=== PATIENT | female | born 1965 | race African-American/Black ===

== ENCOUNTER 2016-03-06 13:00 | Emergency (ER) | payer OTHER ==
--- NOTE | 2016-03-06 15:13 | PHYS DOC ---
Past Medical History Past Medical History: Diabetes-Type II, High Cholesterol, Hypertension Additional Past Medical Histor: obesity, "slight enlarged heart" Past Surgical History: , Tonsillectomy Additional Past Surgical Histo: hernia Alcohol Use: Occasionally Drug Use: None Adult General Chief Complaint Chief Complaint: ABDOMINAL PAIN HPI HPI Patient is a 51 year old female presents emergency department stating that since Saturday she has had abdominal pain and discomfort with nausea feeling. She denies any emesis. Patient states that her abdomen discomfort is generalized. She states within the last 24 hours she has had some loose stools. She is unable to determine how many stool she's had as she said she was frequently throughout the night with loose stools. She denies any blood being in the stools. Patient denies fever, chills. Patient also states that she's been having some vaginal discharge white in color. She states that she felt that she had a yeast infection. Patient also states that she has not had a menstrual cycle for quite some time she thought she was pre-menstrual. States she is sexually active with one partner. She denies . Review of Systems Review of Systems Constitutional: Denies fever or chills [] Eyes: Denies change in visual acuity, redness, or eye pain [] HENT: Denies nasal congestion or sore throat [] Respiratory: Denies cough or shortness of breath [] Cardiovascular: No additional information not addressed in HPI [] GI: generalized abdominal pain, nausea, denies vomiting, C/o loose stools : Denies dysuria or hematuria. C/o white vaginal discharge Musculoskeletal: Denies back pain or joint pain [] Integument: Denies rash or skin lesions [] Neurologic: Denies headache, focal weakness or sensory changes [] Current Medications Current Medications Current Medications Medications (Trade) Dose Ordered Sig/Liana Start Time Stop Time Status Last Admin Dose Admin Info (Do NOT chart on this entry -- for MONITORING) 1 each PRN DAILY PRN 03/06/16 16:30 03/08/16 16:29 Iohexol (Omnipaque 300 Mg/ml) 75 ml 1X ONCE 03/06/16 16:30 03/06/16 16:31 DC 03/06/16 16:51 75 ML Ondansetron HCl (Zofran Odt) 4 mg 1X ONCE 03/06/16 16:30 03/06/16 16:31 DC 03/06/16 16:19 4 MG Sodium Chloride (Iv Sodium Chloride 0.9% 1000ml Bag) 1,000 ml @ 1,000 mls/hr 1X ONCE 03/06/16 15:15 03/06/16 16:14 DC 03/06/16 15:25 1,000 MLS/HR Allergies Allergies Allergies Coded Allergies Type Severity Reaction Last Updated Verified No Known Drug Allergies 03/26/13 No Physical Exam Physical Exam Constitutional: Well developed, well nourished, no acute distress, non-toxic appearance. [] HENT: Normocephalic, atraumatic, bilateral external ears normal, oropharynx moist, no oral exudates, nose normal. [] Eyes: PERRLA, EOMI, conjunctiva normal, no discharge. [] Neck: Normal range of motion, no tenderness, supple, no stridor. [] Cardiovascular:Heart rate regular rhythm, no murmur [] Lungs & Thorax: Bilateral breath sounds clear to auscultation [] Abdomen: Bowel sounds hypoactive, soft, right upper quadrant, left sided abdominal tenderness, no masses, no pulsatile masses. No rebound tenderness noted, no guarding noted. Skin: Warm, dry, no erythema, no rash. [] Back: No tenderness Extremities: No tenderness, no cyanosis, no clubbing, ROM intact, no edema. [] Neurologic: Alert and oriented X 3, normal motor function, normal sensory function, no focal deficits noted. [] Psychologic: Affect normal, judgement normal, mood normal. [] Pelvic exam, patient was noted to have white with slightly reddish discharge noted in the pelvic vault. Manual exam patient was noted to have bilateral adnexal tenderness and CMT tenderness. Current Patient Data Vital Signs Vital Signs Date Time Temp Pulse Resp B/P Pulse Ox O2 Delivery O2 Flow Rate FiO2 03/06/16 15:43 77 163/89 97 Room Air 03/06/16 13:36 98.0 18 98.0 Lab Values Laboratory Tests Test 03/06/16 15:00 03/06/16 15:15 Urine Color Yellow Urine Clarity Clear Urine pH 6.0 Urine Specific [place] 1.015 Urine Protein Negativemg/dL (NEG-TRACE) Urine Glucose (UA) Negativemg/dL (NEG) Urine Ketones (Stick) Negativemg/dL (NEG) Urine Blood Trace (NEG) Urine Nitrite Negative (NEG) Urine Bilirubin Negative (NEG) Urine Urobilinogen Dipstick 0.2mg/dL (0.2 mg/dL) Urine Leukocyte Esterase Small (NEG) Urine RBC 0/HPF (0-2) Urine WBC 1-4/HPF (0-4) Urine Squamous Epithelial Cells Occ/LPF Urine Bacteria 0/HPF (0-FEW) Urine Mucus Slight/LPF Urine Test Negative (NEG) White Blood Count 8.7x10^3/uL (4.0-11.0) Red Blood Count 5.28x10^6/uL (3.50-5.40) Hemoglobin 14.3g/dL (12.0-15.5) Hematocrit 43.6% (36.0-47.0) Mean Corpuscular Volume 83fL (79-100) Mean Corpuscular Hemoglobin 27pg (25-35) Mean Corpuscular Hemoglobin Concent 33g/dL (31-37) Red Cell Distribution Width 15.1% (11.5-14.5) H Platelet Count 266x10^3/uL (140-400) Neutrophils (%) (Auto) 73% (31-73) Lymphocytes (%) (Auto) 18% (24-48) L Monocytes (%) (Auto) 6% (0-9) Eosinophils (%) (Auto) 3% (0-3) Basophils (%) (Auto) 1% (0-3) Neutrophils # (Auto) 6.3x10^3uL (1.8-7.7) Lymphocytes # (Auto) 1.5x10^3/uL (1.0-4.8) Monocytes # (Auto) 0.5x10^3/uL (0.0-1.1) Eosinophils # (Auto) 0.3x10^3/uL (0.0-0.7) Basophils # (Auto) 0.1x10^3/uL (0.0-0.2) Sodium Level 143mmol/L (136-145) Potassium Level 3.8mmol/L (3.5-5.1) Chloride Level 105mmol/L (98-107) Carbon Dioxide Level 28mmol/L (21-32) Anion Gap 10 (6-14) Blood Urea Nitrogen 9mg/dL (7-20) Creatinine 0.7mg/dL (0.6-1.0) Estimated GFR (Cockcroft-Gault) 107.6 BUN/Creatinine Ratio 13 (6-20) Glucose Level 127mg/dL (70-99) H Calcium Level 8.7mg/dL (8.5-10.1) Total Bilirubin 0.6mg/dL (0.2-1.0) Aspartate Amino Transferase (AST) 24U/L (15-37) Alanine Aminotransferase (ALT) 26U/L (14-59) Alkaline Phosphatase 84U/L (46-116) Total Protein 7.4g/dL (6.4-8.2) Albumin 3.8g/dL (3.4-5.0) Albumin/Globulin Ratio 1.1 (1.0-1.7) Amylase Level 28U/L (25-115) Lipase 80U/L (73-393) Laboratory Tests 03/06/16 15:15 Laboratory Tests 03/06/16 15:15 Microbiology 03/06/16 Wet Prep - Final, Complete EKG EKG [] Radiology/Procedures Radiology/Procedures [][facility] [address] [place] [address] IMAGING REPORT Signed PATIENT: MONTANA OVALLES V ACCOUNT: [id number] : 1965 LOCATION: ER AGE: 51 SEX: F EXAM STATUS: REG ER ORD. PHYSICIAN: HEYDI CANDELARIA NP REASON: right upper and left sided abdominal pain PROCEDURE: ABD PELV W/ IV CONTRAST ONLY PROCEDURE CT abdomen pelvis with IV contrast. HISTORY Right upper quadrant and left-sided abdominal pain since 3 days. TECHNIQUE Contiguous helical acquisitions obtained through the abdomen and pelvis during intravenous administration of 75 cc of Omnipaque 300. Sagittal and coronal re-formatted images are obtained and reviewed. COMPARISON None available. FINDINGS A couple subcentimeter soft tissue density nodules are seen in the right middle lobe. Streaky atelectasis in the left lung base. Heart size is normal Liver is mildly enlarged. Spleen and pancreas appear normal. The gallbladder is partially distended. Both adrenal glands and bilateral kidneys are normal in size with symmetric excretion of contrast via both kidneys. There is no hydronephrosis or nephrolithiasis. The aorta is normal in caliber without aneurysm. Mildly enlarged retroperitoneal and mesenteric lymph nodes are seen in the central abdomen as well as in the right lower quadrant. Appendix appears grossly unremarkable. Urinary bladder is partially decompressed. The uterus is enlarged and myomatous. No adnexal mass is identified. No free or focal fluid collections or pelvic lymphadenopathy. Interrogation of bone windows is essentially unremarkable. Spondylotic changes. IMPRESSION A couple subcentimeter nodules seen in the right middle lobe, indeterminate. Minimal atelectasis left lung base. A dedicated CT scan of the chest may be obtained to evaluate additional nodules. Mild hepatomegaly. Mildly enlarged retroperitoneal and mesenteric lymph nodes in the central abdomen and the right lower quadrant. This is of unknown clinical significance and may be related to mesenteric adenitis. Correlate clinically. Enlarged myomatous uterus PQRS: One or more the following individualized dose reduction techniques were utilized for the study: 1. Automated exposure control. 2. Adjustment of the mA and/or kV according to patient size. 3. Use of iterative reconstruction technique. Electronically signed by: Paulette Mariano MD (Mar 06, 2016 17:26:48) DICTATED and SIGNED BY: PAULETTE MARIANO MD DATE: 03/06/16 1726 CC: GRISEL DELA CRUZ MD; HEYDI CANDELARIA NP ~ Course & Med Decision Making Course & Med Decision Making Pertinent Labs and Imaging studies reviewed. (See chart for details) CBC, CMP and amylase and lipase were normal. Patient urine was positive for urinary tract infection. CT scan shows mesenteric adenitis. Patient will be provided with Flagyl, Cipro, and doxycycline as her pelvic exam she was tender on bilateral adnexal and cervical motion tenderness. Patient was provided with lab results CT results. She was recommended to take the antibiotics as prescribed. She is requesting Diflucan for possible yeast infection with the antibiotics. Patient was encouraged to drink plenty of fluids such as water and cranberry juice. Patient was recommended to avoid cranberry juice cocktail carbonate beverages citrus fruits alcohol withdrawal considered irritants to the bladder. Patient agrees with discharge instructions treatment regimens and follow-up recommendations. Also recommended Tylenol and ibuprofen for pain and discomfort. [] Dragon Disclaimer Dragon Disclaimer This electronic medical record was generated, in whole or in part, using a voice recognition dictation system. Departure Departure Impression: Primary Impression: Abdominal pain Additional Impressions: Vaginal discharge Mesenteric adenitis Urinary tract infection Disposition: 01 HOME, SELF-CARE Condition: STABLE Referrals: GRISEL DELA CRUZ MD (PCP) Patient Instructions: Mesenteric Adenitis, Pelvic Inflammatory Disease, Easy-to -Read, Urinary Tract Infection, [id number] Additional Instructions: You have been evaluated for abdominal pain and discomfort as well as vaginal discharge. Medications as prescribed. Tylenol or ibuprofen for fever chills or generalized body aches and discomfort as well as abdominal pain. Drink plenty of fluids such as water and cranberry juice. Avoid cranberry juice cocktail, carbonate beverages, caffeine and alcohol sees her considered irritants to the bladder. Follow-up with her primary care physician in the next 7-10 days. Avoid sexual intercourse for the next 2 weeks. Return back to emergency percent symptoms become worse. Scripts Doxycycline Hyclate 100 Mg Tablet1 Tab PO BID 14 Days Prov:HEYDI CANDELARIA NP 03/06/16 Ciprofloxacin Hcl (Cipro)500 Mg Tablet1 Tab PO BID #14 TAB Prov:HEYDI CANDELARIA NP 03/06/16 Metronidazole (Flagyl)500 Mg Tablet1 Tab PO BID #14 TAB Prov:HEYDI CANDELARIA NP 03/06/16 Problem Qualifiers HEYDI CANDELARIA NP Mar 06, 2016 15:13
[2016-03-06] MEDS ORDERED: IV NORMAL SALINE 1000ML BAG 1,000 ML IV ONE (15:15)
[2016-03-06 15:20] LABS: BILIRUBIN,URINE NEGATIVE (NEG); GLUCOSE,URINE NEGATIVE (NEG); NITRITE,URINE NEGATIVE (NEG); PROTEIN,URINE NEGATIVE (NEG-TRACE); UROBILINOGEN,URINE 0.2 mg/dL (0.2 mg/dL)
[2016-03-06 15:27] LABS: BASO # 0.1 x10^3/uL (0.0-0.2); BASO % 1 % (0-3); EOS % 3 % (0-3); HEMATOCRIT 43.6 % (36.0-47.0); HEMOGLOBIN 14.3 g/dL (12.0-15.5); LYMPH # 1.5 x10^3/uL (1.0-4.8); LYMPH % 18 % (24-48); MEAN CORPUSCULAR HEMOGLOBIN 27 pg (25-35); MEAN CORPUSCULAR HGB CONC 33 g/dL (31-37); MEAN CORPUSCULAR VOLUME 83 fL (79-100); MONO % 6 % (0-9); NEUT % 73 % (31-73); PLATELET COUNT 266 x10^3/uL (140-400); RED BLOOD COUNT 5.28 x10^6/uL (3.50-5.40); RED CELL DISTRIBUTION WIDTH 15.1 % (11.5-14.5); WHITE BLOOD COUNT 8.7 x10^3/uL (4.0-11.0)
[2016-03-06 15:47] LABS: ALBUMIN 3.8 g/dL (3.4-5.0); ALBUMIN/GLOBULIN RATIO 1.1 (1.0-1.7); CALCIUM 8.7 mg/dL (8.5-10.1); CREATININE 0.7 mg/dL (0.6-1.0); GFR 107.6; POTASSIUM 3.8 mmol/L (3.5-5.1); TOTAL BILIRUBIN 0.6 mg/dL (0.2-1.0); TOTAL PROTEIN 7.4 g/dL (6.4-8.2)
[2016-03-06 16:01] LABS: BACTERIA,URINE 0 /HPF (0-FEW); RBC,URINE 0 /HPF (0-2); SQUAMOUS EPITHELIAL CELL,UR OCC /LPF
[2016-03-06 16:02] LABS: NEG OBC UR NEG; POS OBC UR POS
[2016-03-06] MEDS ORDERED: IOHEXOL 300 MG/ML 100ML VIAL. IV ONE (16:30)
[2016-03-06] MEDS ORDERED: CONTRAST GIVEN MC PRN (16:30)
[2016-03-06] MEDS ORDERED: ONDANSETRON ODT 4 MG TAB.RAPDIS PO ONE (16:30)
--- NOTE | 2016-03-06 17:27 | RAD ---
PROCEDURE CT abdomen pelvis with IV contrast. HISTORY Right upper quadrant and left-sided abdominal pain since 3 days. TECHNIQUE Contiguous helical acquisitions obtained through the abdomen and pelvis during intravenous administration of 75 cc of Omnipaque 300. Sagittal and coronal re-formatted images are obtained and reviewed. COMPARISON None available. FINDINGS A couple subcentimeter soft tissue density nodules are seen in the right middle lobe. Streaky atelectasis in the left lung base. Heart size is normal Liver is mildly enlarged. Spleen and pancreas appear normal. The gallbladder is partially distended. Both adrenal glands and bilateral kidneys are normal in size with symmetric excretion of contrast via both kidneys. There is no hydronephrosis or nephrolithiasis. The aorta is normal in caliber without aneurysm. Mildly enlarged retroperitoneal and mesenteric lymph nodes are seen in the central abdomen as well as in the right lower quadrant. Appendix appears grossly unremarkable. Urinary bladder is partially decompressed. The uterus is enlarged and myomatous. No adnexal mass is identified. No free or focal fluid collections or pelvic lymphadenopathy. Interrogation of bone windows is essentially unremarkable. Spondylotic changes. IMPRESSION A couple subcentimeter nodules seen in the right middle lobe, indeterminate. Minimal atelectasis left lung base. A dedicated CT scan of the chest may be obtained to evaluate additional nodules. Mild hepatomegaly. Mildly enlarged retroperitoneal and mesenteric lymph nodes in the central abdomen and the right lower quadrant. This is of unknown clinical significance and may be related to mesenteric adenitis. Correlate clinically. Enlarged myomatous uterus PQRS: One or more the following individualized dose reduction techniques were utilized for the study: 1. Automated exposure control. 2. Adjustment of the mA and/or kV according to patient size. 3. Use of iterative reconstruction technique. Electronically signed by: Paulette Mariano MD (Mar 06, 2016 17:26:48)
[2016-03-06] MEDS ORDERED: METR500T PO (17:48)
[2016-03-06] MEDS ORDERED: DOXY100T PO (17:48)
[2016-03-06] MEDS ORDERED: CIPR500T94 PO (17:48)
[2016-03-06 18:30] VITALS: BP 198/94
== END 2016-03-06 18:38 | disposition home or self-care (01) ==
LOC: ER 13:00
DX: N39.0 Urinary tract infection, site not specified (principal); I88.0 Nonspecific mesenteric lymphadenitis; N89.8 Other specified noninflammatory disorders of vagina; E11.9 Type 2 diabetes mellitus without complications; E78.00 Pure hypercholesterolemia, unspecified; I10 Essential (primary) hypertension; I51.7 Cardiomegaly; E66.9 Obesity, unspecified
CPT/HCPCS: 36415; 74177; 80053; 81001; 81025; 82150; 83690; 85027; 87086; 87491; 87591; 96360; 96361; 99285; J7030; Q0111; Q0162; Q9967

== ENCOUNTER 2016-05-07 20:43 | Emergency (ER) | payer OTHER ==
[~2016-05-07] VITALS: Ht 157.5 cm; Wt 97.1 kg
[~2016-05-07 20:43] MED LIST: CIPR500T94 PO; DOXY100T PO; METR500T PO
[2016-05-07] MEDS ORDERED: NAPROXEN 500 MG TABLET PO ONE (21:15)
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
[2016-05-07] MEDS ORDERED: NAPR375T3 PO (22:40)
[2016-05-07] MEDS ORDERED: CYCL10TA2 PO (22:40)
[2016-05-07 22:53] VITALS: BP 120/81
[2016-05-07 22:54] LABS: BILIRUBIN,URINE NEGATIVE (NEG); GLUCOSE,URINE NEGATIVE (NEG); NITRITE,URINE NEGATIVE (NEG); PROTEIN,URINE NEGATIVE (NEG-TRACE); UROBILINOGEN,URINE 0.2 mg/dL (0.2 mg/dL)
[2016-05-07 23:01] LABS: BACTERIA,URINE FEW /HPF (0-FEW); RBC,URINE OCC /HPF (0-2); SQUAMOUS EPITHELIAL CELL,UR MOD /LPF
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
== END 2016-05-07 22:56 | disposition home or self-care (01) ==
LOC: ER 20:43
DX: M54.2 Cervicalgia (principal); M25.512 Pain in left shoulder; M54.9 Dorsalgia, unspecified; E11.9 Type 2 diabetes mellitus without complications; E78.00 Pure hypercholesterolemia, unspecified; I10 Essential (primary) hypertension; E66.9 Obesity, unspecified; Z68.39 Body mass index [BMI] 39.0-39.9, adult; V43.52XA Car driver injured in collision with other type car in traffic accident, initial encounter; Y93.89 Activity, other specified; Y99.8 Other external cause status; Y92.488 Other paved roadways as the place of occurrence of the external cause
CPT/HCPCS: 72072; 72100; 72125; 73030; 81001; 87086; 99285-25

== ENCOUNTER 2016-05-16 17:16 | Emergency (ER) | payer BC, OTHER ==
[~2016-05-16] VITALS: Ht 157.5 cm; Wt 97.1 kg
[~2016-05-16 17:16] MED LIST changes: +CYCL10TA2 PO; +NAPR375T3 PO
[2016-05-16] MEDS ORDERED: NITROGLYCERIN SUBLINGUAL 0.4 MG BOTTLE OF 25. SL PRN (17:45)
[2016-05-16 18:24] LABS: BASO # 0.1 x10^3/uL (0.0-0.2); BASO % 1 % (0-3); EOS % 4 % (0-3); HEMATOCRIT 41.5 % (36.0-47.0); HEMOGLOBIN 13.4 g/dL (12.0-15.5); LYMPH # 3.4 x10^3/uL (1.0-4.8); LYMPH % 33 % (24-48); MEAN CORPUSCULAR HEMOGLOBIN 27 pg (25-35); MEAN CORPUSCULAR HGB CONC 32 g/dL (31-37); MEAN CORPUSCULAR VOLUME 84 fL (79-100); MONO % 7 % (0-9); NEUT % 56 % (31-73); PLATELET COUNT 268 x10^3/uL (140-400); RED BLOOD COUNT 4.97 x10^6/uL (3.50-5.40); RED CELL DISTRIBUTION WIDTH 14.7 % (11.5-14.5); WHITE BLOOD COUNT 10.4 x10^3/uL (4.0-11.0)
[2016-05-16] MEDS ORDERED: ACETAMINOPHEN 325 MG TABLET. PO ONE (18:30)
--- NOTE | 2016-05-16 18:31 | PHYS DOC ---
Past Medical History Past Medical History: Diabetes-Type II, High Cholesterol, Hypertension Additional Past Medical Histor: obesity, "slight enlarged heart" Past Surgical History: , Tonsillectomy Additional Past Surgical Histo: hernia Alcohol Use: Occasionally Drug Use: None Adult General Chief Complaint Chief Complaint: HYPERTENSION HPI HPI 51 yo female who states she's had significant left arm pain and elevated blood pressure that was noted today after multiple readings. She states that she's had issues with left arm pain previously but today the pain was worse. She took a blood pressure that was elevated. She has not taken one of her blood pressure medications because she is out of it. She states she has history of hypertension and dmh-jdhvosh-vknlvgzro diabetes but no other known medical problems. She states she believes she had a stress test approximately one year ago that was otherwise normal. Review of Systems Review of Systems Constitutional: Denies fever or chills [] Eyes: Denies change in visual acuity, redness, or eye pain [] HENT: Denies nasal congestion or sore throat [] Respiratory: Denies cough or shortness of breath [] Cardiovascular: No additional information not addressed in HPI [] GI: Denies abdominal pain, nausea, vomiting, bloody stools or diarrhea [] : Denies dysuria or hematuria [] Musculoskeletal: Denies back pain or joint pain [] Integument: Denies rash or skin lesions [] Neurologic: Denies headache, focal weakness or sensory changes [] Endocrine: Denies polyuria or polydipsia [] Current Medications Current Medications Current Medications Medications (Trade) Dose Ordered Sig/[facility] Start Time Stop Time Status Last Admin Dose Admin Acetaminophen (Tylenol) 650 mg 1X ONCE 05/16/16 18:30 05/16/16 18:31 DC 05/16/16 18:32 650 MG Nitroglycerin (Nitrostat) 0.4 mg PRN Q5MIN PRN 05/16/16 17:45 05/17/16 17:44 05/16/16 18:04 0.4 MG Allergies Allergies Allergies Coded Allergies Type Severity Reaction Last Updated Verified No Known Drug Allergies 03/26/13 No Physical Exam Physical Exam Constitutional: Well developed, well nourished, no acute distress, non-toxic appearance. [] HENT: Normocephalic, atraumatic, bilateral external ears normal, oropharynx moist, no oral exudates, nose normal. [] Eyes: PERRLA, EOMI, conjunctiva normal, no discharge. [] Neck: Normal range of motion, no tenderness, supple, no stridor. [] Cardiovascular:Heart rate regular rhythm, no murmur [] Lungs & Thorax: Bilateral breath sounds clear to auscultation [] Abdomen: Bowel sounds normal, soft, no tenderness, no masses, no pulsatile masses. [] Skin: Warm, dry, no erythema, no rash. [] Back: No tenderness, no CVA tenderness. [] Extremities: No tenderness, no cyanosis, no clubbing, ROM intact, no edema. [] Neurologic: Alert and oriented X 3, normal motor function, normal sensory function, no focal deficits noted. [] Psychologic: Affect normal, judgement normal, mood normal. [] Current Patient Data Vital Signs Vital Signs Date Time Temp Pulse Resp B/P Pulse Ox O2 Delivery O2 Flow Rate FiO2 05/16/16 19:00 78 18 142/90 96 Nasal Cannula 2 05/16/16 17:18 98.5 98.5 Lab Values Laboratory Tests Test 05/16/16 18:10 White Blood Count 10.4x10^3/uL (4.0-11.0) Red Blood Count 4.97x10^6/uL (3.50-5.40) Hemoglobin 13.4g/dL (12.0-15.5) Hematocrit 41.5% (36.0-47.0) Mean Corpuscular Volume 84fL (79-100) Mean Corpuscular Hemoglobin 27pg (25-35) Mean Corpuscular Hemoglobin Concent 32g/dL (31-37) Red Cell Distribution Width 14.7% (11.5-14.5) H Platelet Count 268x10^3/uL (140-400) Neutrophils (%) (Auto) 56% (31-73) Lymphocytes (%) (Auto) 33% (24-48) Monocytes (%) (Auto) 7% (0-9) Eosinophils (%) (Auto) 4% (0-3) H Basophils (%) (Auto) 1% (0-3) Neutrophils # (Auto) 5.8x10^3uL (1.8-7.7) Lymphocytes # (Auto) 3.4x10^3/uL (1.0-4.8) Monocytes # (Auto) 0.7x10^3/uL (0.0-1.1) Eosinophils # (Auto) 0.4x10^3/uL (0.0-0.7) Basophils # (Auto) 0.1x10^3/uL (0.0-0.2) Sodium Level 141mmol/L (136-145) Potassium Level 3.6mmol/L (3.5-5.1) Chloride Level 102mmol/L (98-107) Carbon Dioxide Level 28mmol/L (21-32) Anion Gap 11 (6-14) Blood Urea Nitrogen 13mg/dL (7-20) Creatinine 0.8mg/dL (0.6-1.0) Estimated GFR (Cockcroft-Gault) 92.2 Glucose Level 189mg/dL (70-99) H Calcium Level 9.5mg/dL (8.5-10.1) Troponin I Quantitative < 0.017ng/mL (0.000-0.055) Laboratory Tests 05/16/16 18:10 Laboratory Tests 05/16/16 18:10 EKG EKG EKG as interpreted by me shows a sinus rhythm with an occasional PVC. There is artifact seen. There are no obvious ischemic findings. This EKG does not meet STEMI criteria. Radiology/Procedures Radiology/Procedures One view of the chest as interpreted by me did not reveal any acute cardiopulmonary abnormality. Course & Med Decision Making Course & Med Decision Making Pertinent Labs and Imaging studies reviewed. (See chart for details) This 51-year-old female who's having intermittent left arm pain as well as a slightly elevated blood pressure earlier today blood pressure here of 155/83. Patient was given a dose of nitroglycerin which did help somewhat I gave her significant headache. Patient was having a headache earlier to before. Her laboratory workup is unrevealing and including a set of cardiac enzymes. Her chest film did not reveal any acute abnormalities. My final reassessment, the patient feels much improved and her blood pressures improved significantly to 140/90. Patient states she will be able to be seen tomorrow and have her blood pressure rechecked and to be evaluated by her primary care doctor for possible stress test evaluation. She was very agreeable to this plan and will be discharged without incident. Dragon Disclaimer Dragon Disclaimer This electronic medical record was generated, in whole or in part, using a voice recognition dictation system. Departure Departure Impression: Primary Impression: Arm pain Additional Impression: Hypertension Disposition: 01 HOME, SELF-CARE Admitting Physician: Other Condition: STABLE Referrals: GRISEL DELA CRUZ MD (PCP) Patient Instructions: Hypertension Additional Instructions: Please follow up with your primary doctor in the next 1-2 days to have your blood pressure rechecked and to be scheduled for possible stress test evaluation. Return to the ER immediately if you have any worsening of your arm pain or chest pain. Problem Qualifiers CIARRA GOTTLIEB DO May 16, 2016 18:31
[2016-05-16 18:53] LABS: CALCIUM 9.5 mg/dL (8.5-10.1); CREATININE 0.8 mg/dL (0.6-1.0); GFR 92.2; POTASSIUM 3.6 mmol/L (3.5-5.1)
[2016-05-16 19:30] VITALS: BP 143/78
--- NOTE | 2016-05-17 06:50 | EKG ---
[facility] [address] [place] [address] Test Date: 2016-05-16 Test Time: 17:37:09 Pat Name: MONTANA OVALLES Department: Room: Gender: F [employer]: : 1965 Requested By: CIARRA GOTTLIEB Order Number: [id number] Reading MD: Measurements Intervals [place] Rate: 82 P: 59 IA: 164 QRS: 13 QRSD: 92 T: 4 QT: 410 QTc: 482 Interpretive Statements SINUS RHYTHM VENTRICULAR PREMATURE COMPLEX(ES) PROLONGED QT ABNORMAL ECG RI6.01 No previous ECG available for comparison
--- NOTE | 2016-05-17 08:03 | RAD ---
Indication chest pain. A single view of the chest was obtained and is compared to a study March 26, 2013. Heart size is slightly enlarged but unchanged. There is no congestive heart failure focal infiltrate significant pleural fluid collection or pneumothorax. A significant change in the appearance of the chest compared to the prior study is not seen. IMPRESSION: No acute finding. No significant change
== END 2016-05-16 19:58 | disposition home or self-care (01) ==
LOC: ER 17:16
DX: I10 Essential (primary) hypertension (principal); M79.602 Pain in left arm; E11.9 Type 2 diabetes mellitus without complications; E78.00 Pure hypercholesterolemia, unspecified; E66.9 Obesity, unspecified; Z68.39 Body mass index [BMI] 39.0-39.9, adult
CPT/HCPCS: 36415; 71010; 80048; 84484; 85027; 93005; 99285-25

== ENCOUNTER 2016-11-25 05:25 | Emergency (ER) | payer SELFPAY ==
[~2016-11-25] VITALS: Ht 157.5 cm; Wt 96.2 kg
[~2016-11-25 05:25] MED LIST changes: +NAPR-695 PO; -NAPR375T3 PO
--- NOTE | 2016-11-25 06:15 | PHYS DOC ---
Past Medical History Past Medical History: Diabetes-Type II, High Cholesterol, Hypertension Additional Past Medical Histor: obesity, "slight enlarged heart" Past Surgical History: , Tonsillectomy Additional Past Surgical Histo: hernia Alcohol Use: Occasionally Drug Use: None Adult General Chief Complaint Chief Complaint: WEAKNESS/GENERALIZED HPI HPI Patient is a 51 year old male who presents to the emergency department with chief complaint of panic attack-like episode. The patient reports she used to get panic attacks frequently. The patient thinks that she has panic attacks morning. The patient was sleeping and began to have of which she thinks was a fast heart rate. The patient got up and went to the restroom and then had an episode of diarrhea. On the patient was in the restroom she began to feel worse and in particular she felt near syncopal. The patient was also diaphoretic. The patient reports shortness of air at this time. The patient denies chest pain. The patient reports that she came in to the hospital via EMS. The patient complains that she feels chilled now. Denies any fevers. The patient denies sore throat, rhinorrhea, cough, nausea, vomiting, weight loss, abdominal pain, dysuria, overwhelming sadness and confusion Review of Systems Review of Systems Constitutional: Denies fever or chills [] Eyes: Denies change in visual acuity, redness, or eye pain [] HENT: Denies nasal congestion or sore throat [] Respiratory: Denies cough or shortness of breath [] Cardiovascular: No additional information not addressed in HPI [] GI: Denies abdominal pain, nausea, vomiting, bloody stools or diarrhea [] : Denies dysuria or hematuria [] Musculoskeletal: Denies back pain or joint pain [] Integument: Denies rash or skin lesions [] Neurologic: Denies headache, focal weakness or sensory changes [] Endocrine: Denies polyuria or polydipsia [] Current Medications Current Medications Current Medications Medications (Trade) Dose Ordered Sig/Liana Start Time Stop Time Status Last Admin Dose Admin Aspirin (Children'S Aspirin) 324 mg 1X ONCE 11/25/16 06:30 11/25/16 06:31 DC 11/25/16 06:39 324 MG Sodium Chloride 1,000 ml @ 100 mls/hr Q10H 11/25/16 06:30 11/25/16 16:29 11/25/16 06:41 100 MLS/HR Patient was taking Diovan hydrochlorothiazide and amlodipine Allergies Allergies Allergies Coded Allergies Type Severity Reaction Last Updated Verified No Known Drug Allergies 03/26/13 No Physical Exam Physical Exam Constitutional: Well developed, well nourished, no acute distress, non-toxic appearance. [] HENT: Normocephalic, atraumatic, bilateral external ears normal, oropharynx moist, no oral exudates, nose normal. [] Eyes: PERRLA, EOMI, conjunctiva normal, no discharge. [] Neck: Normal range of motion, no tenderness, supple, no stridor. [] Cardiovascular:Heart rate regular rhythm, no murmur [] Lungs & Thorax: Bilateral breath sounds clear to auscultation [] Abdomen: Bowel sounds normal, soft, no tenderness, no masses, no pulsatile masses. [] Skin: Warm, dry, no erythema, no rash. [] Back: No tenderness, no CVA tenderness. [] Extremities: No tenderness, no cyanosis, no clubbing, ROM intact, no edema. [] Neurologic: Alert and oriented X 3, normal motor function, normal sensory function, no focal deficits noted. [] Psychologic: Affect normal, judgement normal, mood normal. [] Current Patient Data Vital Signs Vital Signs Date Time Temp Pulse Resp B/P (MAP) Pulse Ox O2 Delivery O2 Flow Rate FiO2 11/25/16 06:27 104 16 125/65 (85) 96 Room Air 11/25/16 05:30 97.5 97.5 Lab Values Laboratory Tests Test 11/25/16 06:00 11/25/16 06:50 White Blood Count 10.3 x10^3/uL (4.0-11.0) Red Blood Count 5.06 x10^6/uL (3.50-5.40) Hemoglobin 13.9 g/dL (12.0-15.5) Hematocrit 42.9 % (36.0-47.0) Mean Corpuscular Volume 85 fL (79-100) Mean Corpuscular Hemoglobin 28 pg (25-35) Mean Corpuscular Hemoglobin Concent 33 g/dL (31-37) Red Cell Distribution Width 15.3 % (11.5-14.5) H Platelet Count 258 x10^3/uL (140-400) Neutrophils (%) (Auto) 60 % (31-73) Lymphocytes (%) (Auto) 31 % (24-48) Monocytes (%) (Auto) 7 % (0-9) Eosinophils (%) (Auto) 1 % (0-3) Basophils (%) (Auto) 0 % (0-3) Neutrophils # (Auto) 6.2 x10^3uL (1.8-7.7) Lymphocytes # (Auto) 3.2 x10^3/uL (1.0-4.8) Monocytes # (Auto) 0.7 x10^3/uL (0.0-1.1) Eosinophils # (Auto) 0.1 x10^3/uL (0.0-0.7) Basophils # (Auto) 0.0 x10^3/uL (0.0-0.2) Urine Collection Type Unknown Urine Color Yellow Urine Clarity Clear Urine pH 7.0 Urine Specific [place] 1.010 Urine Protein 100 mg/dL (NEG-TRACE) Urine Glucose (UA) 250 mg/dL (NEG) Urine Ketones (Stick) Negative mg/dL (NEG) Urine Blood Negative (NEG) Urine Nitrite Negative (NEG) Urine Bilirubin Negative (NEG) Urine Urobilinogen Dipstick 0.2 mg/dL (0.2 mg/dL) Urine Leukocyte Esterase Negative (NEG) Urine RBC 0 /HPF (0-2) Urine WBC 1-4 /HPF (0-4) Urine Squamous Epithelial Cells Mod /LPF Urine Bacteria Few /HPF (0-FEW) Prothrombin Time 12.8 SEC (11.7-14.0) Prothrombin Time INR 1.0 (0.8-1.1) D-Dimer (Karol) 0.40 ug/mlFEU (0.00-0.50) Maternal Serum HCG Beta Subunit 1 mIU/mL (0-5) Sodium Level 144 mmol/L (136-145) Potassium Level 3.2 mmol/L (3.5-5.1) L Chloride Level 105 mmol/L (98-107) Carbon Dioxide Level 25 mmol/L (21-32) Anion Gap 14 (6-14) Blood Urea Nitrogen 12 mg/dL (7-20) Creatinine 0.9 mg/dL (0.6-1.0) Estimated GFR (Cockcroft-Gault) 80.5 Glucose Level 212 mg/dL (70-99) H Calcium Level 9.0 mg/dL (8.5-10.1) Magnesium Level 2.0 mg/dL (1.8-2.4) Total Bilirubin 0.3 mg/dL (0.2-1.0) Direct Bilirubin 0.1 mg/dL (0.0-0.2) Aspartate Amino Transferase (AST) 21 U/L (15-37) Alanine Aminotransferase (ALT) 26 U/L (14-59) Alkaline Phosphatase 97 U/L (46-116) Creatine Kinase 138 U/L (26-192) Creatine Kinase MB (Mass) 1.1 ng/mL (0.0-3.6) Creatine Kinase MB Relative Index 0.8 % (0-4) Troponin I Quantitative < 0.017 ng/mL (0.000-0.055) KL-Dis-S-Type Natriuretic Peptide 264 pg/mL (0-124) H Total Protein 8.5 g/dL (6.4-8.2) H Albumin 3.9 g/dL (3.4-5.0) Laboratory Tests 11/25/16 06:00 Laboratory Tests 11/25/16 06:50 EKG EKG EKG displays a normal sinus rhythm with PACs present there are nonspecific T waves present the W[place] interval is 180 ms the QRS duration 74 ms QT interval 422 ms heart rate is 75 bpm EKG interpreted by Dr. Shirley at 6:14 AM[] Radiology/Procedures Radiology/Procedures [] Course & Med Decision Making Course & Med Decision Making Pertinent Labs and Imaging studies reviewed. (See chart for details) [] Dragon Disclaimer Dragon Disclaimer This electronic medical record was generated, in whole or in part, using a voice recognition dictation system. Departure Departure Impression: Primary Impression: Anxiety attack Additional Impression: Palpitations Disposition: 01 HOME, SELF-CARE Condition: GOOD Referrals: GRISEL DELA CRUZ MD (PCP) Patient Instructions: Anxiety and Panic Attacks Additional Instructions: Please return to the emergency department for any concerning symptoms. Please follow-up with her primary care physician in one to 7 days. If she does not have a primary care physician please request a copy of our list of primary care physicians from the nurse prior she discharge. Problem Qualifiers JEN HAGER MD Nov 25, 2016 06:15
[2016-11-25 06:33] LABS: BASO % 0 % (0-3); EOS % 1 % (0-3); HEMATOCRIT 42.9 % (36.0-47.0); HEMOGLOBIN 13.9 g/dL (12.0-15.5); LYMPH # 3.2 x10^3/uL (1.0-4.8); LYMPH % 31 % (24-48); MEAN CORPUSCULAR HEMOGLOBIN 28 pg (25-35); MEAN CORPUSCULAR HGB CONC 33 g/dL (31-37); MEAN CORPUSCULAR VOLUME 85 fL (79-100); MONO % 7 % (0-9); NEUT % 60 % (31-73); PLATELET COUNT 258 x10^3/uL (140-400); RED BLOOD COUNT 5.06 x10^6/uL (3.50-5.40); RED CELL DISTRIBUTION WIDTH 15.3 % (11.5-14.5); WHITE BLOOD COUNT 10.3 x10^3/uL (4.0-11.0)
[2016-11-25] MEDS: ASPIRIN CHEWABLE 81 MG TABLET. PO ONE (06:39)
[2016-11-25 06:41] LABS: BILIRUBIN,URINE NEGATIVE (NEG); GLUCOSE,URINE 250 mg/dL (NEG); NITRITE,URINE NEGATIVE (NEG); PROTEIN,URINE 100 mg/dL (NEG-TRACE); UROBILINOGEN,URINE 0.2 mg/dL (0.2 mg/dL)
[2016-11-25] MEDS: IV NORMAL SALINE 1000ML BAG 1,000 ML IV SCH (06:41)
[2016-11-25 06:55] LABS: RBC,URINE 0 /HPF (0-2)
[2016-11-25 06:56] LABS: BACTERIA,URINE FEW /HPF (0-FEW); SQUAMOUS EPITHELIAL CELL,UR MOD /LPF
[2016-11-25 07:13] LABS: CREATININE 0.9 mg/dL (0.6-1.0); GFR 80.5; POTASSIUM 3.2 mmol/L (3.5-5.1)
[2016-11-25 07:19] LABS: ALBUMIN 3.9 g/dL (3.4-5.0); DIRECT BILIRUBIN 0.1 mg/dL (0.0-0.2); TOTAL BILIRUBIN 0.3 mg/dL (0.2-1.0); TOTAL PROTEIN 8.5 g/dL (6.4-8.2)
[2016-11-25 07:27] LABS: PROTHROMBIN TIME PATIENT 12.8 SEC (11.7-14.0)
--- NOTE | 2016-11-25 07:29 | RAD ---
PA and lateral chest. History: Dyspnea and weakness PA and lateral views were taken of the chest. Lungs are free of infiltrates. Heart is normal in size. There is no pleural effusion. Impression: 1. No acute chest disease.
[2016-11-25 07:43] LABS: CKMB MASS 1.1 ng/mL (0.0-3.6)
[2016-11-25 08:15] VITALS: BP 99/65
--- NOTE | 2016-11-25 10:11 | EKG ---
[facility] [address] [place] [address] Test Date: 2016-11-25 Test Time: 05:48:52 Pat Name: MONTANA OVALLES Department: Room: Gender: F Ginner: : 1965 Requested By: JEN HAGER Order Number: [id number] Reading MD: Measurements Intervals [place] Rate: 75 P: 96 [place]: 180 QRS: 15 QRSD: 94 T: 0 QT: 422 QTc: 474 Interpretive Statements SINUS RHYTHM VENTRICULAR PREMATURE COMPLEX(ES) ATRIAL PREMATURE COMPLEX(ES) T ABNORMALITY IN ANTERIOR LEADS PROLONGED QT RI6.01 Unconfirmed report No previous ECG available for comparison
== END 2016-11-25 08:15 | disposition home or self-care (01) ==
LOC: ER 05:25
DX: F41.0 Panic disorder [episodic paroxysmal anxiety] (principal); R00.2 Palpitations; E11.9 Type 2 diabetes mellitus without complications; E78.00 Pure hypercholesterolemia, unspecified; I10 Essential (primary) hypertension; I51.7 Cardiomegaly; E66.9 Obesity, unspecified; Z68.38 Body mass index [BMI] 38.0-38.9, adult
CPT/HCPCS: 36415; 71020; 80048; 80076; 81001; 82553; 83735; 83880; 84484; 84702; 85025; 85379; 85610; 93005; 96360; 96361; 99285; J7030

== ENCOUNTER 2017-04-07 10:16 | Inpatient (IN) | payer OTHER ==
[2017-04-07 10:59] LABS: ADD MAN DIFF? NO
[2017-04-07 11:07] LABS: BASO % 1 % (0-3); EOS # 0.3 x10^3/uL (0.0-0.7); EOS % 5 % (0-3); HEMATOCRIT 43.5 % (36.0-47.0); LYMPH # 2.3 x10^3/uL (1.0-4.8); LYMPH % 43 % (24-48); MEAN CORPUSCULAR HEMOGLOBIN 27 pg (25-35); MEAN CORPUSCULAR HGB CONC 32 g/dL (31-37); MEAN CORPUSCULAR VOLUME 83 fL (79-100); MONO # 0.9 x10^3/uL (0.0-1.1); MONO % 18 % (0-9); NEUT # 1.8 x10^3uL (1.8-7.7); NEUT % 34 % (31-73); PLATELET COUNT 238 x10^3/uL (140-400); RED BLOOD COUNT 5.25 x10^6/uL (3.50-5.40); RED CELL DISTRIBUTION WIDTH 15.6 % (11.5-14.5); WHITE BLOOD COUNT 5.4 x10^3/uL (4.0-11.0)
[2017-04-07 11:12] LABS: URINE HCG POC HCG NEGATIVE (Negative)
[2017-04-07 11:17] LABS: ANION GAP 10 (6-14); BLOOD UREA NITROGEN 9 mg/dL (7-20); BUN/CREATININE RATIO 11 (6-20); CALCIUM 8.8 mg/dL (8.5-10.1); CARBON DIOXIDE 30 mmol/L (21-32); CHLORIDE 99 mmol/L (98-107); CREATININE 0.8 mg/dL (0.6-1.0); GFR 91.9; GLUCOSE 166 mg/dL (70-99); SODIUM 139 mmol/L (136-145)
[2017-04-07 11:22] LABS: PROTHROMBIN TIME PATIENT 12.1 SEC (11.7-14.0)
[2017-04-07 11:23] LABS: ALBUMIN 3.5 g/dL (3.4-5.0); ALK PHOS 76 U/L (46-116); ALT (SGPT) 24 U/L (14-59); AST (SGOT) 24 U/L (15-37); MAGNESIUM 2.1 mg/dL (1.8-2.4); TOTAL BILIRUBIN 0.3 mg/dL (0.2-1.0); TOTAL PROTEIN 7.1 g/dL (6.4-8.2)
[2017-04-07 11:24] LABS: TROPONINI < 0.017 ng/mL (0.000-0.055)
[2017-04-07 11:27] LABS: NT-PRO BNP 381 pg/mL (0-124)
[2017-04-07] MEDS: IV NORMAL SALINE 1000ML BAG 1,000 ML IV (12:32)
[2017-04-07] MEDS: ASPIRIN 325 MG TABLET PO (12:32)
[2017-04-07] MEDS ORDERED: fentaNYL PF VIAL 100 MCG/2 ML VIAL IV (12:45)
[2017-04-07] MEDS ORDERED: NITROGLYCERIN SUBLINGUAL 0.4 MG BOTTLE OF 25. SL (12:45)
[2017-04-07 16:22] LABS: TROPONINI < 0.017 ng/mL (0.000-0.055)
[2017-04-07] MEDS: METOPROLOL TART IMMED RELEASE 25 MG TABLET. PO ×2 (16:30→20:59)
[2017-04-07] MEDS: ENOXAPARIN 40 MG/0.4 ML SYRINGE. SQ (18:00)
[2017-04-07 19:09] LABS: TROPONINI < 0.017 ng/mL (0.000-0.055)
[2017-04-07] MEDS: ACETAMINOPHEN 325 MG TABLET. PO (19:37)
[2017-04-07] MEDS: ZOLPIDEM 5 MG TABLET. PO (22:45)
[2017-04-08 03:51] LABS: ADD MAN DIFF? NO
[2017-04-08 03:58] LABS: BASO % 1 % (0-3); EOS # 0.4 x10^3/uL (0.0-0.7); EOS % 6 % (0-3); HEMOGLOBIN 13.8 g/dL (12.0-15.5); LYMPH # 3.4 x10^3/uL (1.0-4.8); LYMPH % 56 % (24-48); MEAN CORPUSCULAR HEMOGLOBIN 27 pg (25-35); MEAN CORPUSCULAR HGB CONC 33 g/dL (31-37); MEAN CORPUSCULAR VOLUME 83 fL (79-100); MONO # 0.7 x10^3/uL (0.0-1.1); MONO % 12 % (0-9); NEUT # 1.6 x10^3uL (1.8-7.7); NEUT % 26 % (31-73); PLATELET COUNT 237 x10^3/uL (140-400); RED BLOOD COUNT 5.06 x10^6/uL (3.50-5.40); RED CELL DISTRIBUTION WIDTH 15.6 % (11.5-14.5); WHITE BLOOD COUNT 6.1 x10^3/uL (4.0-11.0)
[2017-04-08 04:22] LABS: ALBUMIN 3.2 g/dL (3.4-5.0); ALBUMIN/GLOBULIN RATIO 0.8 (1.0-1.7); ALK PHOS 72 U/L (46-116); ALT (SGPT) 22 U/L (14-59); ANION GAP 7 (6-14); AST (SGOT) 18 U/L (15-37); BLOOD UREA NITROGEN 8 mg/dL (7-20); BUN/CREATININE RATIO 11 (6-20); CALCIUM 8.6 mg/dL (8.5-10.1); CARBON DIOXIDE 31 mmol/L (21-32); CHLORIDE 100 mmol/L (98-107); CHOLESTEROL 160 mg/dL (0-200); CREATININE 0.7 mg/dL (0.6-1.0); GFR 107.2; GLUCOSE 128 mg/dL (70-99); HDLC 22 mg/dL (40-60); LDLC 98 mg/dL (0-100); NON-HDL CHOLESTEROL 138 mg/dL (0-129); POTASSIUM 3.7 mmol/L (3.5-5.1); SODIUM 138 mmol/L (136-145); TOTAL BILIRUBIN 0.2 mg/dL (0.2-1.0); TOTAL PROTEIN 7.2 g/dL (6.4-8.2); TRIGLYCERIDES 199 mg/dL (0-150); VLDLC 40 mg/dL (0-40)
[2017-04-08 04:31] LABS: CHOLESTEROL/HDL RATIO 7.3
[2017-04-08] MEDS: METOPROLOL TART IMMED RELEASE 25 MG TABLET. PO (08:17)
[2017-04-08] MEDS: ACETAMINOPHEN 325 MG TABLET. PO (08:17)
[2017-04-08] MEDS: PANTOPRAZOLE 40 MG TABLET.DR. PO (15:35)
[2017-04-08] MEDS: ENOXAPARIN 40 MG/0.4 ML SYRINGE. SQ (18:00)
[2017-04-09] MEDS: ACETAMINOPHEN 325 MG TABLET. PO (00:06)
[2017-04-09] MEDS: PANTOPRAZOLE 40 MG TABLET.DR. PO (07:30)
[2017-04-09] MEDS: METOPROLOL SUCC 24HR ER 25 MG TAB.ER.24H. PO (09:45)
[2017-04-09] MEDS ORDERED: ASPIRIN ENTERIC COATED 81 MG TABLET.DR. PO (13:00)
[2017-04-09] MEDS ORDERED: ATORVASTATIN CALCIUM 10 MG TABLET. PO (21:00)
== END 2017-04-09 13:20 | disposition home or self-care (01) | DRG 392 ==
LOC: ER 10:16 → 2 SOUTH 12:40
DX: K21.9 Gastro-esophageal reflux disease without esophagitis (principal); I11.9 Hypertensive heart disease without heart failure; E11.9 Type 2 diabetes mellitus without complications; I20.9 Angina pectoris, unspecified; I49.3 Ventricular premature depolarization; E66.9 Obesity, unspecified; J31.0 Chronic rhinitis; Z68.38 Body mass index [BMI] 38.0-38.9, adult; Z90.49 Acquired absence of other specified parts of digestive tract; Z98.51 Tubal ligation status
CPT/HCPCS: 36415; 71045; 78452; 80053; 80061; 81025; 83735; 83880; 84443; 84484; 85025; 85610; 93005; 93017; 93306; 96360; 96374; 96376; 99285-25; A9500; J7030

== ENCOUNTER 2017-11-08 22:59 | Emergency (ER) | payer OTHER ==
[~2017-11-08] VITALS: Ht 157.5 cm; Wt 97.5 kg
[~2017-11-08 22:59] MED LIST changes: +AMLO5TAB7 PO; +ASPI-482 PO; +HYDR25TA9 PO; +METO-239 PO; +VALS320T2 PO
[2017-11-08 23:35] VITALS: BP 127/61
[2017-11-09] MEDS ORDERED: LIDOCAINE 2%/EPI 1:100,000 20 ML VIAL. IJ ONE (01:30)
[2017-11-09] MEDS ORDERED: DIPHTH,PERTUSS(ACELL),TET TOX 0.5 ML DISP.SYRIN. VAX IM ONE (01:30)
[2017-11-09] MEDS ORDERED: CEPHALEXIN 250 MG CAPSULE. PO ONE (01:30)
--- NOTE | 2017-11-09 01:55 | PHYS DOC ---
Past Medical History Past Medical History: Diabetes-Type II, Hypertension Additional Past Medical Histor: obesity, "slight enlarged heart" Past Surgical History: , Tonsillectomy Additional Past Surgical Histo: HERNIA REPAIR Alcohol Use: Occasionally Drug Use: None Adult General Chief Complaint Chief Complaint: LACERATION/AVULSION HPI HPI Patient is a 52 year old female presenting with right middle finger laceration. Patient reports she was cleaning her toilet and lacerated her finger on the toilet bowl. Patient notes progressive pain since the injury with a burning quality, denies radiation of pain. Patient denies any other injury. Review of Systems Review of Systems Constitutional: Denies fever or chills [] Eyes: Denies change in visual acuity, redness, or eye pain [] HENT: Denies nasal congestion or sore throat [] Respiratory: Denies cough or shortness of breath [] Cardiovascular: No chest pain or palpitations[] GI: Denies abdominal pain, nausea, vomiting, bloody stools or diarrhea [] : Denies dysuria or hematuria [] Musculoskeletal: Denies back pain or joint pain [] Integument: Denies rash, notes right middle finger laceration[] Neurologic: Denies headache, focal weakness or sensory changes [] Complete systems were reviewed and found to be within normal limits, except as documented in this note. Family History Family History Noncontributory Current Medications Current Medications Current Medications Medications (Trade) Dose Ordered Sig/Liana Start Time Stop Time Status Last Admin Dose Admin Cephalexin HCl (Keflex) 500 mg 1X ONCE 11/09/17 01:30 11/09/17 01:31 DC 11/09/17 01:25 500 MG Diphtheria/ Tetanus/Acell Pertussis (Boostrix) 0.5 ml ONCE ONCE 11/09/17 01:30 11/09/17 01:31 DC 11/09/17 01:27 0.5 ML Lidocaine/ Epinephrine (LIDOCAINE 2%-EPI 1:100,000 multi-dose) 20 ml 1X ONCE 11/09/17 01:30 11/09/17 01:31 DC 11/09/17 01:26 20 ML Neomycin/ Polymyxin/ Bacitracin (Triple Antibiotic Ointment) 1 pkt 1X ONCE 11/09/17 02:15 11/09/17 02:16 DC 11/09/17 02:17 1 PKT Allergies Allergies Allergies Coded Allergies Type Severity Reaction Last Updated Verified No Known Drug Allergies 03/26/13 No Physical Exam Physical Exam Constitutional: Well developed, well nourished, no acute distress, non-toxic appearance. [] HENT: Normocephalic, atraumatic, oropharynx moist, no oral exudates, nose normal. [] Eyes: PERRL, EOMI, conjunctiva normal, no discharge. [] Neck: Normal range of motion, no tenderness, supple, no stridor. [] Cardiovascular:Heart rate regular rhythm, no murmur [] Lungs & Thorax: Bilateral breath sounds clear to auscultation [] Abdomen: Bowel sounds normal, soft, no tenderness, no masses, no pulsatile masses. [] Skin: Warm, dry, no erythema, no rash. Right middle finger volar 1.5 cm superficial laceration[] Back: No tenderness, no CVA tenderness. [] Extremities: No tenderness, ROM intact, no edema. Right middle finger has full painless range of motion, intact sensation, normal perfusion, normal muscle strength.[] Neurologic: Alert and oriented X 3, normal motor function, normal sensory function, no focal deficits noted. [] Psychologic: Affect normal, judgement normal, mood normal. [] Current Patient Data Vital Signs Vital Signs Date Time Temp Pulse Resp B/P (MAP) Pulse Ox O2 Delivery O2 Flow Rate FiO2 11/08/17 23:35 98.3 48 18 127/61 (83) 96 Room Air 98.3 EKG EKG [] Radiology/Procedures Radiology/Procedures [] Course & Med Decision Making Course & Med Decision Making 52-year-old female presenting after a laceration to her right middle finger. Patient notes she was cleaning a toilet and lacerated her finger on the toilet bowl. Laceration is superficial and does not involve any deep structures. Patient has full range of motion and normal muscle strength and is neurovascularly intact in her right middle finger. Laceration was repaired with 3 simple interrupted 5-0 Ethilon sutures with good closure of the wound. Wound was dressed. Patient stable for discharge with outpatient follow-up with PCP. Discussed findings and plan with patient, who acknowledge understanding and agreement. [] Dragon Disclaimer Dragon Disclaimer This electronic medical record was generated, in whole or in part, using a voice recognition dictation system. Departure Departure Impression: Primary Impression: Finger laceration Disposition: 01 HOME, SELF-CARE Condition: STABLE Referrals: GRISEL DELA CRUZ MD (PCP) Patient Instructions: Laceration Care, Adult, [id number] Additional Instructions: Do not soak your wound. You may shower. Clean wound daily with soap and water. Change dressing 2 times daily. Use over the counter antibiotic ointment with each dressing change. Sutures need to be removed in 7 days. Present to your family doctor or local urgent care for removal. You may also present to the ED but it will be an additional visit/charge. After suture removal you may use Vitamin E ointment to soften the wound and prevent scarring. Laceration/Wound Repair Laceration/Wound Repair : Wound Location: upper extremity (right volar middle finger) Wound's Depth, Shape: superficial, flap Wound Length (cm): 1 Wound Explored: no foreign body removed Irrigated w/ Saline (ccs): 500 Betadine Prep?: Yes Anesthesia: Lidocaine w/ Epi Volume Anesthetic (ccs): 6 Wound Debrided: minimal Wound Repaired With: sutures Suture Size/Type: 5:0, nylon Number of Sutures: 3 Layer Closure?: No Sterile Dressing Applied?: Yes Splint Applied?: No Sling Applied?: No Problem Qualifiers Primary Impression: Finger laceration Encounter type: initial encounter Finger: index finger Damage to nail status: unspecified Foreign body presence: without foreign body Laterality: right Qualified Codes: S61.210A - Laceration without foreign body of right index finger without damage to nail, initial encounter EMELINA BURGOS DO Nov 09, 2017 01:55
[2017-11-09] MEDS ORDERED: NEOMY/BACITR/POLYMYXIN OINT PACKET. TP ONE (02:15)
== END 2017-11-09 02:27 | disposition home or self-care (01) ==
LOC: ER 22:59
DX: S61.212A Laceration without foreign body of right middle finger without damage to nail, initial encounter (principal); E11.9 Type 2 diabetes mellitus without complications; I10 Essential (primary) hypertension; E66.9 Obesity, unspecified; Z68.39 Body mass index [BMI] 39.0-39.9, adult; Y28.8XXA Contact with other sharp object, undetermined intent, initial encounter; Y93.F9 Activity, other caregiving; Y92.89 Other specified places as the place of occurrence of the external cause; Y99.8 Other external cause status
CPT/HCPCS: 12001; 90471; 90715; 99283; J3490

== ENCOUNTER 2019-04-05 10:19 | Inpatient (IN) | payer OTHER ==
[~2019-04-05] VITALS: Ht 157.5 cm; Wt 102.0 kg
[~2019-04-05 10:19] MED LIST changes: +AMLO5TAB10 PO; -AMLO5TAB7 PO; +HYDR-2145 PO; -HYDR25TA9 PO
[2019-04-05] MEDS ORDERED: IPRATRPIUM/ALBUTEROL 0.5/2.5MG 3 ML NEBU. NEB ONE (11:15)
[2019-04-05] MEDS ORDERED: IV NORMAL SALINE 1000ML BAG 1,000 ML IV ONE (11:15)
--- NOTE | 2019-04-05 11:29 | PHYS DOC ---
Past Medical History Past Medical History: Diabetes-Type II, Hypertension Additional Past Medical Histor: obesity, "slight enlarged heart" Past Surgical History: , Tonsillectomy Additional Past Surgical Histo: HERNIA REPAIR Smoking Status: Former Smoker Alcohol Use: Occasionally Drug Use: None Adult General Chief Complaint Chief Complaint: CHEST PAIN HPI HPI Patient is a 54 year old female who presents with chest pain, fever, cough, shortness of breath, hoarse voice, sore throat, body aches that has been ongoing since Saturday. The patient states her fever has been high but she's not been notified thermometer taken at home. Her fever on arrival to the emergency department was 102.1F. The patient states she has a history of hypertension, diabetes. Patient not checked her sugar recently. Has not been taking medication for symptoms so far. Review of Systems Review of Systems Constitutional: Reports fever or chills [] Eyes: Denies change in visual acuity, redness, or eye pain [] HENT: Reports nasal congestion and sore throat [] Respiratory: Reports cough and shortness of breath [] Cardiovascular: No additional information not addressed in HPI [] GI: Denies abdominal pain, nausea, vomiting, bloody stools or diarrhea [] : Denies dysuria or hematuria [] Musculoskeletal: Reports body aches. Integument: Denies rash or skin lesions [] Neurologic: Denies headache, focal weakness or sensory changes [] Endocrine: Denies polyuria or polydipsia [] Complete systems were reviewed and found to be within normal limits, except as documented in this note. Current Medications Current Medications Current Medications Medications (Trade) Dose Ordered Sig/Liana Start Time Stop Time Status Last Admin Dose Admin Albuterol/ Ipratropium (Duoneb) 3 ml 1X ONCE 04/05/19 11:15 04/05/19 11:16 DC 04/05/19 11:31 3 ML Levofloxacin/ Dextrose 150 ml @ 100 mls/hr 1X STAT 04/05/19 11:31 04/05/19 13:00 DC 04/05/19 12:47 100 MLS/HR Piperacillin Sod/ Tazobactam Sod 3.375 gm/Sodium Chloride 50 ml @ 100 mls/hr 1X STAT 04/05/19 11:31 04/05/19 12:00 DC 04/05/19 12:09 100 MLS/HR Sodium Chloride 1,000 ml @ 1,000 mls/hr 1X ONCE 04/05/19 11:15 04/05/19 12:14 DC 04/05/19 12:06 1,000 MLS/HR Allergies Allergies Allergies Coded Allergies Type Severity Reaction Last Updated Verified No Known Drug Allergies 03/26/13 No Physical Exam Physical Exam Constitutional: Well developed, well nourished, no acute distress, toxic appearance HENT: Normocephalic, atraumatic, bilateral external ears normal, oropharynx moist, tonsils are 1+/4, no oral exudates, nose inflamed. Eyes: PERRLA, EOMI, conjunctiva normal, no discharge. [] Neck: Normal range of motion, no tenderness, supple, no stridor. [] Cardiovascular:Heart rate regular rhythm, no murmur [] Lungs & Thorax: Bilateral breath sounds are diminished with rhonchi throughout. Abdomen: Bowel sounds normal, soft, no tenderness, no masses, no pulsatile masses. [] Skin: Warm, dry, no erythema, no rash. [] Neurologic: Alert and oriented X 3, normal motor function, normal sensory function, no focal deficits noted. [] Psychologic: Affect normal, judgement normal, mood normal. [] Current Patient Data Vital Signs Vital Signs Date Time Temp Pulse Resp B/P (MAP) Pulse Ox O2 Delivery O2 Flow Rate FiO2 04/05/19 11:31 93 Room Air 04/05/19 10:50 102.1 110 28 149/89 (109) 102.1 Lab Values Laboratory Tests Test 04/05/19 11:08 04/05/19 11:15 04/05/19 11:30 Influenza Type A Antigen Negative (NEGATIVE) Influenza Type B Antigen Negative (NEGATIVE) White Blood Count 9.8 x10^3/uL (4.0-11.0) Red Blood Count 5.31 x10^6/uL (3.50-5.40) Hemoglobin 14.6 g/dL (12.0-15.5) Hematocrit 44.3 % (36.0-47.0) Mean Corpuscular Volume 83 fL (79-100) Mean Corpuscular Hemoglobin 28 pg (25-35) Mean Corpuscular Hemoglobin Concent 33 g/dL (31-37) Red Cell Distribution Width 15.1 % (11.5-14.5) H Platelet Count 268 x10^3/uL (140-400) Neutrophils (%) (Auto) 79 % (31-73) H Lymphocytes (%) (Auto) 10 % (24-48) L Monocytes (%) (Auto) 10 % (0-9) H Eosinophils (%) (Auto) 1 % (0-3) Basophils (%) (Auto) 1 % (0-3) Neutrophils # (Auto) 7.8 x10^3/uL (1.8-7.7) H Lymphocytes # (Auto) 0.9 x10^3/uL (1.0-4.8) L Monocytes # (Auto) 0.9 x10^3/uL (0.0-1.1) Eosinophils # (Auto) 0.1 x10^3/uL (0.0-0.7) Basophils # (Auto) 0.1 x10^3/uL (0.0-0.2) Prothrombin Time 13.1 SEC (11.7-14.0) Prothrombin Time INR 1.0 (0.8-1.1) Activated Partial Thromboplast Time 32 SEC (24-38) Sodium Level 140 mmol/L (136-145) Potassium Level 3.9 mmol/L (3.5-5.1) Chloride Level 99 mmol/L (98-107) Carbon Dioxide Level 27 mmol/L (21-32) Anion Gap 14 (6-14) Blood Urea Nitrogen 9 mg/dL (7-20) Creatinine 0.9 mg/dL (0.6-1.0) Estimated GFR (Cockcroft-Gault) 79.6 BUN/Creatinine Ratio 10 (6-20) Glucose Level 152 mg/dL (70-99) H Lactic Acid Level 1.9 mmol/L (0.4-2.0) Calcium Level 9.8 mg/dL (8.5-10.1) Magnesium Level 1.9 mg/dL (1.8-2.4) Total Bilirubin 0.9 mg/dL (0.2-1.0) Aspartate Amino Transferase (AST) 19 U/L (15-37) Alanine Aminotransferase (ALT) 23 U/L (14-59) Alkaline Phosphatase 90 U/L (46-116) Troponin I Quantitative < 0.017 ng/mL (0.000-0.055) FZ-Qsk-D-Type Natriuretic Peptide 2212 pg/mL (0-124) H Total Protein 7.7 g/dL (6.4-8.2) Albumin 4.2 g/dL (3.4-5.0) Albumin/Globulin Ratio 1.2 (1.0-1.7) Procalcitonin < 0.10 ng/mL (0.00-0.10) Urine Collection Type Void Urine Color Yellow Urine Clarity Clear Urine pH 7.5 Urine Specific [place] 1.010 Urine Protein Negative mg/dL (NEG-TRACE) Urine Glucose (UA) Negative mg/dL (NEG) Urine Ketones (Stick) Negative mg/dL (NEG) Urine Blood Negative (NEG) Urine Nitrite Negative (NEG) Urine Bilirubin Negative (NEG) Urine Urobilinogen Dipstick 0.2 mg/dL (0.2 mg/dL) Urine Leukocyte Esterase Negative (NEG) Urine RBC Occ /HPF (0-2) Urine WBC 1-4 /HPF (0-4) Urine Squamous Epithelial Cells Many /LPF Urine Bacteria Few /HPF (0-FEW) Urine Mucus Slight /LPF Laboratory Tests 04/05/19 11:15 Laboratory Tests 04/05/19 11:15 EKG EKG [] Radiology/Procedures Radiology/Procedures [][facility] [id number] [place], [place] [id number] IMAGING REPORT Signed PATIENT: MONTANA OVALLES ACCOUNT: [id number] : 1965 LOCATION: ER AGE: 54 SEX: F EXAM STATUS: REG ER ORD. PHYSICIAN: EMELINA PLATT APRN REASON: shortness of breath, fever, cough, chest pain PROCEDURE: CHEST PA & LATERAL Exam performed: 2 views chest HISTORY: Shortness of breath, fever and cough, chest pain. DATE OF SERVICE: 11/15/2019. COMPARISON: One view chest from April 07, 2017. FINDINGS: PA and lateral views of the chest are obtained. Mild cardiomegaly is stable. Vascularity is congested. Development of hazy airspace opacity seen in the left infrahilar region and left lung base. There is also mild haziness in the right lung base some of which may be exaggerated due to overlying breast shadow. No pleural effusion or pneumothorax seen. IMPRESSION: Mild cardiomegaly with Central vascular congestion and hazy bilateral opacities. Findings may be related to CHF or infiltrates. Correlate clinically. Electronically signed by: Paulette Mariano MD (04/05/2019 11:35 AM) [facility] DICTATED and SIGNED BY: PAULETTE MARIANO MD DATE: 04/05/19 5196 Course & Med Decision Making Course & Med Decision Making Pertinent Labs and Imaging studies reviewed. (See chart for details) Will get labs, influenza test, chest x-ray, ekg, and give supportive care. Chest x-ray shows vascular congestion vs pneumonia. Patient has Fever. Will treat with Levaquin and Zosyn. BNP is 2110. Labs are otherwise unremarkable. Will admit to hospitalist and call Dr. Bray. Discussed patient with Dr. Bray who accepts admission to hospital. Dragon Disclaimer Dragon Disclaimer This electronic medical record was generated, in whole or in part, using a voice recognition dictation system. Departure Departure Impression: Primary Impression: Pneumonia Additional Impression: Acute exacerbation of CHF (congestive heart failure) Disposition: ADMITTED INPATIENT Admitting Physician: TIFFANIE Condition: STABLE Referrals: GRISEL DELA CRUZ MD (PCP) Problem Qualifiers Primary Impression: Pneumonia Pneumonia type: due to unspecified organism Laterality: bilateral Lung location: lower lobe of lung Qualified Codes: J18.9 - Pneumonia, unspecified organism Additional Impression: Acute exacerbation of CHF (congestive heart failure) Heart failure type: unspecified Qualified Codes: I50.9 - Heart failure, unspecified EMELINA PLATT APRN Apr 05, 2019 11:29
[2019-04-05] MEDS ORDERED: PIPERACILLIN/TAZOBACTAM 3.375 GM in IV NORMAL SALINE 50ML 50 ML IV STA (11:31)
--- NOTE | 2019-04-05 11:38 | RAD ---
Exam performed: 2 views chest HISTORY: Shortness of breath, fever and cough, chest pain. DATE OF SERVICE: 11/15/2019. COMPARISON: One view chest from April 07, 2017. FINDINGS: PA and lateral views of the chest are obtained. Mild cardiomegaly is stable. Vascularity is congested. Development of hazy airspace opacity seen in the left infrahilar region and left lung base. There is also mild haziness in the right lung base some of which may be exaggerated due to overlying breast shadow. No pleural effusion or pneumothorax seen. IMPRESSION: Mild cardiomegaly with Central vascular congestion and hazy bilateral opacities. Findings may be related to CHF or infiltrates. Correlate clinically. Electronically signed by: Paulette Mariano MD (04/05/2019 11:35 AM) [facility]
[2019-04-05 11:39] LABS: BASO # 0.1 x10^3/uL (0.0-0.2); BASO % 1 % (0-3); EOS # 0.1 x10^3/uL (0.0-0.7); EOS % 1 % (0-3); HEMATOCRIT 44.3 % (36.0-47.0); HEMOGLOBIN 14.6 g/dL (12.0-15.5); LYMPH # 0.9 x10^3/uL (1.0-4.8); LYMPH % 10 % (24-48); MEAN CORPUSCULAR HEMOGLOBIN 28 pg (25-35); MEAN CORPUSCULAR HGB CONC 33 g/dL (31-37); MEAN CORPUSCULAR VOLUME 83 fL (79-100); MONO # 0.9 x10^3/uL (0.0-1.1); MONO % 10 % (0-9); NEUT # 7.8 x10^3/uL (1.8-7.7); NEUT % 79 % (31-73); PLATELET COUNT 268 x10^3/uL (140-400); RED BLOOD COUNT 5.31 x10^6/uL (3.50-5.40); RED CELL DISTRIBUTION WIDTH 15.1 % (11.5-14.5); WHITE BLOOD COUNT 9.8 x10^3/uL (4.0-11.0)
[2019-04-05 11:43] LABS: INFLUENZA A PATIENT NEGATIVE (NEGATIVE); INFLUENZA B PATIENT NEGATIVE (NEGATIVE)
[2019-04-05 11:50] LABS: BILIRUBIN,URINE NEGATIVE (NEG); CLARITY,URINE CLEAR; COLOR,URINE YELLOW; NITRITE,URINE NEGATIVE (NEG); PH,URINE 7.5; PROTEIN,URINE NEGATIVE (NEG-TRACE); UROBILINOGEN,URINE 0.2 mg/dL (0.2 mg/dL)
[2019-04-05 11:52] LABS: CALCIUM 9.8 mg/dL (8.5-10.1); CREATININE 0.9 mg/dL (0.6-1.0); GFR 79.6; POTASSIUM 3.9 mmol/L (3.5-5.1)
[2019-04-05 12:04] LABS: ALBUMIN 4.2 g/dL (3.4-5.0); ALBUMIN/GLOBULIN RATIO 1.2 (1.0-1.7); MAGNESIUM 1.9 mg/dL (1.8-2.4); TOTAL BILIRUBIN 0.9 mg/dL (0.2-1.0); TOTAL PROTEIN 7.7 g/dL (6.4-8.2)
[2019-04-05 12:06] LABS: SQUAMOUS EPITHELIAL CELL,UR MANY /LPF
[2019-04-05 12:07] LABS: BACTERIA,URINE FEW /HPF (0-FEW); RBC,URINE OCC /HPF (0-2)
[2019-04-05 12:20] LABS: PROTHROMBIN TIME PATIENT 13.1 SEC (11.7-14.0)
[2019-04-05] MEDS ORDERED: ONDANSETRON PF 4 MG/2 ML VIAL. IV PRN ×2 (13:30→16:00)
[2019-04-05] MEDS ORDERED: fentaNYL PF VIAL 100 MCG/2 ML VIAL IV PRN (13:30)
[2019-04-05] MEDS ORDERED: ACETAMINOPHEN 500 MG TABLET PO STA (14:26)
[2019-04-05 15:45] VITALS: BP 142/72
[2019-04-05] MEDS ORDERED: CYCLOBENZAPRINE 10 MG TABLET. PO PRN (16:00)
[2019-04-05] MEDS ORDERED: FUROSEMIDE 40 MG/4 ML VIAL. IVP ONE (16:00)
[2019-04-05] MEDS ORDERED: OMEP20TA8 PO (16:02)
[2019-04-05] MEDS ORDERED: DULA0.75 SQ (16:03)
[2019-04-05] MEDS ORDERED: IV DEXTROSE 5% 250 ML BAG. IV PRN (16:15)
[2019-04-05] MEDS ORDERED: DEXTROSE 50% 25 GM / 50ML DISP.SYRIN. IV PRN (16:15)
--- NOTE | 2019-04-05 16:21 | PDOC1 ---
History and Physical Date of Admission Date of Admission DATE: 04/05/19 TIME: 16:00 Identification/Chief Complaint Chief Complaint Shortness of breath History of Present Illness History of Present Illness Ms Dugan is a 54 yo F w/ PMHx DM, HTN, paliptations who presents with chest pain, fever, cough, shortness of breath, hoarse voice, sore throat, body aches that were sudden onset late 04/03/2019. The patient states her fever has been high but she's not been notified thermometer taken at home. Her fever on arrival to the emergency department was 102.1F. The patient states she has a history of hypertension, diabetes. Patient not checked her sugar recently. Has not been taking medication for symptoms so far. CXR with bilateral congestion. Admitted for pain and fever control and treatment of influenza Past Medical History Cardiovascular: HTN Pulmonary: No pertinent hx GI: No pertinent hx Musculoskeletal: low back pain Rheumatologic: No pertinent hx Infectious disease: No pertinent hx Past Surgical History Past Surgical History: , Tubal Ligation Family History Family History: No Significant Social History Smoke: No ALCOHOL: none Drugs: None Current Problem List Problem List Problems Medical Problems: (1) Acute exacerbation of CHF (congestive heart failure) Status: Acute (2) Pneumonia Status: Acute Current Medications Current Medications Current Medications Albuterol/ Ipratropium (Duoneb) 3 ml 1X ONCE NEB Last administered on 04/05/19at 11:31; Start 04/05/19 at 11:15; Stop 04/05/19 at 11:16; Status DC Sodium Chloride 1,000 ml @ 1,000 mls/hr 1X ONCE IV Last administered on 04/05/19at 12:06; Start 04/05/19 at 11:15; Stop 04/05/19 at 12:14; Status DC Piperacillin Sod/ Tazobactam Sod 3.375 gm/Sodium Chloride 50 ml @ 100 mls/hr 1X STAT IV Last administered on 04/05/19at 12:09; Start 04/05/19 at 11:31; Stop 04/05/19 at 12:00; Status DC Levofloxacin/ Dextrose 150 ml @ 100 mls/hr 1X STAT IV Last administered on 04/05/19at 12:47; Start 04/05/19 at 11:31; Stop 2/9/20 at 13:00; Status DC Ondansetron HCl (Zofran) 4 mg PRN Q8HRS PRN IV NAUSEA/VOMITING; Start 04/05/19 at 13:30; Stop 04/06/19 at 13:29 Fentanyl Citrate (Fentanyl 2ml Vial) 50 mcg PRN Q1HR PRN IV PAIN Last ad ministered on 04/05/19at 15:37; Start 04/05/19 at 13:30; Stop 04/06/19 at 13:29 Acetaminophen (Tylenol) 1,000 mg 1X STAT PO Last administered on 04/05/19at 15:35; Start 04/05/19 at 14:26; Stop 04/05/19 at 14:28; Status DC Active Scripts Active Aspir 81 (Aspirin) 81 Mg Tablet.dr 1 Tab PO DAILY Cyclobenzaprine Hcl 10 Mg Tablet 10 Mg PO TID PRN Naproxen 375 Mg Tablet 375 Mg PO BID Reported Amlodipine Besylate 5 Mg Tablet 5 Mg PO DAILY Diovan (Valsartan) 320 Mg Tablet 320 Mg PO DAILY Hydrochlorothiazide Tablet (Hydrochlorothiazide) 25 Mg Tablet 2 Tab PO DAILY Metoprolol Succinate ( Xl ) (Metoprolol Succinate) 25 Mg Tab.er.24h 1 Tab PO DAILY Allergies Allergies: Coded Allergies: No Known Drug Allergies (Unverified , 03/26/13) ROS General: YES: Fatigue, Malaise; No: Chills, Night Sweats, Appetite, Other PSYCHOLOGICAL ROS: No: Anxiety, Behavioral Disorder, Concentration difficultie, Decreased libido, Depression, Disorientation, Hallucinations, Hostility, Irritablity, Memory difficulties, Mood Swings, Obsessive thoughts, Physical abuse, Sexual abuse, Sleep disturbances, Suicidal ideation, Other Eyes: No Blurry vision, No Decreased vision, No Double vision, No Dry eyes, No Excessive tearing, No Eye Pain, No Itchy Eyes, No Loss of vision, No Photophobia, No Scotomata, No Uses contacts, No Uses glasses, No Other HEENT: No: Heacaches, Visual Changes, Hearing change, Nasal congestion, Nasal discharge, Oral lesions, Sinus pain, Sore Throat, Epistaxis, Sneezing, Snoring, Tinnitus, Vertigo, Vocal changes, Other ALLERGY AND IMMUNOLOGY: No: Hives, Insect Bite Sensitivity, Itchy/Watery Eyes, Nasal Congestion, Post Nasal Drip, Seasonal Allergies, Other Hematological and Lymphatic: No: Bleeding Problems, Blood Clots, Blood Transfusions, Brusing, Night Sweats, Pallor, Swollen Lymph Nodes, Other ENDOCRINE: No: Breast Changes, Galactorrhea, Hair Pattern Changes, Hot Flashes, Malaise/lethargy, Mood Swings, Palpitations, Polydipsia/polyuria, Skin Changes, Temperature Intolerance, Unexpected Weight Changes, Other Breast: No New/Changing Breast Lumps, No Nipple changes, No Nipple discharge, No Other Respiratory: YES: Cough, Shortness of breath, SOB with excertion, Tachypnea, Wheezing; No: Hemoptysis, Orthopnea, Pleuritic Pain, Sputum Changes, Stridor, Other Cardiovascular: No Chest Pain, No Palpitations, No Orthopnea, No Paroxysmal Noc. Dyspnea, No Edema, No Lt Headedness, No Other Gastrointestinal: Yes Nausea; No Vomiting, No Abdominal Pain, No Diarrhea, No Constipation, No Melena, No Hematochezia, No Other Genitourinary: No Dysuria, No Frequency, No Incontinence, No Hematuria, No Retention, No Discharge, No Urgency, No Pain, No Flank Pain, No Other, No , No , No , No , No , No , No Musculoskeletal: No Gait Disturbance, No Joint Pain, No Joint Stiffness, No Joint Swelling, No Muscle Pain, No Muscular Weakness, No Pain In:, No Swelling In:, No Other Neurological: No Behavorial Changes, No Bowel/Bladder ControlChng, No Confusion, No Dizziness, No Gait Disturbance, No Headaches, No Impaired Coord/balance, No Memory Loss, No Numbness/Tingling, No Seizures, No Speech Problems, No Tremors, No Visual Changes, No Weakness, No Other Skin: No Dry Skin, No Eczema, No Hair Changes, No Lumps, No Mole Changes, No Mottling, No Nail Changes, No Pruritus, No Rash, No Skin Lesion Changes, No Other, No Acne Physical Exam General: Alert, Oriented X3, Cooperative, No acute distress HEENT: Atraumatic, PERRLA Lungs: Normal air movement, Other (Wheeze) Heart: S1S2, RRR, no thrills, no rubs, no gallops, no murmurs Abdomen: Normal bowel sounds, Soft, No tenderness, No hepatosplenomegaly, No masses Extremities: No clubbing, No cyanosis, No edema, Normal pulses, No tenderness/swelling Skin: No rashes, No breakdown, No significant lesion Neuro: Normal gait, Normal speech, Strength at 5/5 X4 ext, Normal tone, Sensation intact, Cranial nerves 3-12 NL, Reflexes 2+ Psych/Mental Status: Mental status NL, Mood NL Vitals Vitals Vital Signs Date Time Temp Pulse Resp B/P (MAP) Pulse Ox O2 Delivery O2 Flow Rate FiO2 04/05/19 14:19 102.6 102.6 04/05/19 13:48 110 28 164/81 (108) 94 Room Air Labs Labs Laboratory Tests Test 04/05/19 11:08 04/05/19 11:15 04/05/19 11:30 Influenza Type A Antigen Negative (NEGATIVE) Influenza Type B Antigen Negative (NEGATIVE) White Blood Count 9.8 x10^3/uL (4.0-11.0) Red Blood Count 5.31 x10^6/uL (3.50-5.40) Hemoglobin 14.6 g/dL (12.0-15.5) Hematocrit 44.3 % (36.0-47.0) Mean Corpuscular Volume 83 fL (79-100) Mean Corpuscular Hemoglobin 28 pg (25-35) Mean Corpuscular Hemoglobin Concent 33 g/dL (31-37) Red Cell Distribution Width 15.1 % (11.5-14.5) Platelet Count 268 x10^3/uL (140-400) Neutrophils (%) (Auto) 79 % (31-73) Lymphocytes (%) (Auto) 10 % (24-48) Monocytes (%) (Auto) 10 % (0-9) Eosinophils (%) (Auto) 1 % (0-3) Basophils (%) (Auto) 1 % (0-3) Neutrophils # (Auto) 7.8 x10^3/uL (1.8-7.7) Lymphocytes # (Auto) 0.9 x10^3/uL (1.0-4.8) Monocytes # (Auto) 0.9 x10^3/uL (0.0-1.1) Eosinophils # (Auto) 0.1 x10^3/uL (0.0-0.7) Basophils # (Auto) 0.1 x10^3/uL (0.0-0.2) Prothrombin Time 13.1 SEC (11.7-14.0) Prothromb Time International Ratio 1.0 (0.8-1.1) Activated Partial Thromboplast Time 32 SEC (24-38) Sodium Level 140 mmol/L (136-145) Potassium Level 3.9 mmol/L (3.5-5.1) Chloride Level 99 mmol/L (98-107) Carbon Dioxide Level 27 mmol/L (21-32) Anion Gap 14 (6-14) Blood Urea Nitrogen 9 mg/dL (7-20) Creatinine 0.9 mg/dL (0.6-1.0) Estimated GFR (Cockcroft-Gault) 79.6 BUN/Creatinine Ratio 10 (6-20) Glucose Level 152 mg/dL (70-99) Lactic Acid Level 1.9 mmol/L (0.4-2.0) Calcium Level 9.8 mg/dL (8.5-10.1) Magnesium Level 1.9 mg/dL (1.8-2.4) Total Bilirubin 0.9 mg/dL (0.2-1.0) Aspartate Amino Transf (AST/SGOT) 19 U/L (15-37) Alanine Aminotransferase (ALT/SGPT) 23 U/L (14-59) Alkaline Phosphatase 90 U/L (46-116) Troponin I Quantitative < 0.017 ng/mL (0.000-0.055) AX-Nbe-J-Type Natriuretic Peptide 2212 pg/mL (0-124) Total Protein 7.7 g/dL (6.4-8.2) Albumin 4.2 g/dL (3.4-5.0) Albumin/Globulin Ratio 1.2 (1.0-1.7) Procalcitonin < 0.10 ng/mL (0.00-0.10) Urine Collection Type Void Urine Color Yellow Urine Clarity Clear Urine pH 7.5 Urine Specific [place] 1.010 Urine Protein Negative mg/dL (NEG-TRACE) Urine Glucose (UA) Negative mg/dL (NEG) Urine Ketones (Stick) Negative mg/dL (NEG) Urine Blood Negative (NEG) Urine Nitrite Negative (NEG) Urine Bilirubin Negative (NEG) Urine Urobilinogen Dipstick 0.2 mg/dL (0.2 mg/dL) Urine Leukocyte Esterase Negative (NEG) Urine RBC Occ /HPF (0-2) Urine WBC 1-4 /HPF (0-4) Urine Squamous Epithelial Cells Many /LPF Urine Bacteria Few /HPF (0-FEW) Urine Mucus Slight /LPF Laboratory Tests Test 04/05/19 11:08 04/05/19 11:15 04/05/19 11:30 Influenza Type A Antigen Negative (NEGATIVE) Influenza Type B Antigen Negative (NEGATIVE) White Blood Count 9.8 x10^3/uL (4.0-11.0) Red Blood Count 5.31 x10^6/uL (3.50-5.40) Hemoglobin 14.6 g/dL (12.0-15.5) Hematocrit 44.3 % (36.0-47.0) Mean Corpuscular Volume 83 fL (79-100) Mean Corpuscular Hemoglobin 28 pg (25-35) Mean Corpuscular Hemoglobin Concent 33 g/dL (31-37) Red Cell Distribution Width 15.1 % (11.5-14.5) Platelet Count 268 x10^3/uL (140-400) Neutrophils (%) (Auto) 79 % (31-73) Lymphocytes (%) (Auto) 10 % (24-48) Monocytes (%) (Auto) 10 % (0-9) Eosinophils (%) (Auto) 1 % (0-3) Basophils (%) (Auto) 1 % (0-3) Neutrophils # (Auto) 7.8 x10^3/uL (1.8-7.7) Lymphocytes # (Auto) 0.9 x10^3/uL (1.0-4.8) Monocytes # (Auto) 0.9 x10^3/uL (0.0-1.1) Eosinophils # (Auto) 0.1 x10^3/uL (0.0-0.7) Basophils # (Auto) 0.1 x10^3/uL (0.0-0.2) Prothrombin Time 13.1 SEC (11.7-14.0) Prothromb Time International Ratio 1.0 (0.8-1.1) Activated Partial Thromboplast Time 32 SEC (24-38) Sodium Level 140 mmol/L (136-145) Potassium Level 3.9 mmol/L (3.5-5.1) Chloride Level 99 mmol/L (98-107) Carbon Dioxide Level 27 mmol/L (21-32) Anion Gap 14 (6-14) Blood Urea Nitrogen 9 mg/dL (7-20) Creatinine 0.9 mg/dL (0.6-1.0) Estimated GFR (Cockcroft-Gault) 79.6 BUN/Creatinine Ratio 10 (6-20) Glucose Level 152 mg/dL (70-99) Lactic Acid Level 1.9 mmol/L (0.4-2.0) Calcium Level 9.8 mg/dL (8.5-10.1) Magnesium Level 1.9 mg/dL (1.8-2.4) Total Bilirubin 0.9 mg/dL (0.2-1.0) Aspartate Amino Transf (AST/SGOT) 19 U/L (15-37) Alanine Aminotransferase (ALT/SGPT) 23 U/L (14-59) Alkaline Phosphatase 90 U/L (46-116) Troponin I Quantitative < 0.017 ng/mL (0.000-0.055) WM-Qpc-T-Type Natriuretic Peptide 2212 pg/mL (0-124) Total Protein 7.7 g/dL (6.4-8.2) Albumin 4.2 g/dL (3.4-5.0) Albumin/Globulin Ratio 1.2 (1.0-1.7) Procalcitonin < 0.10 ng/mL (0.00-0.10) Urine Collection Type Void Urine Color Yellow Urine Clarity Clear Urine pH 7.5 Urine Specific [place] 1.010 Urine Protein Negative mg/dL (NEG-TRACE) Urine Glucose (UA) Negative mg/dL (NEG) Urine Ketones (Stick) Negative mg/dL (NEG) Urine Blood Negative (NEG) Urine Nitrite Negative (NEG) Urine Bilirubin Negative (NEG) Urine Urobilinogen Dipstick 0.2 mg/dL (0.2 mg/dL) Urine Leukocyte Esterase Negative (NEG) Urine RBC Occ /HPF (0-2) Urine WBC 1-4 /HPF (0-4) Urine Squamous Epithelial Cells Many /LPF Urine Bacteria Few /HPF (0-FEW) Urine Mucus Slight /LPF Images Images CXR - Vascularity is congested. Development of hazy airspace opacity seen in the left infrahilar region and left lung base. There is also mild haziness in the right lung base some of which may be exaggerated due to overlying breast shadow. No pleural effusion or pneumothorax seen. IMPRESSION: Mild cardiomegaly with Central vascular congestion and hazy bilateral opacities. Findings may be related to CHF or infiltrates. Correlate clinically. VTE Prophylaxis Ordered VTE Prophylaxis Devices: No VTE Pharmacological Prophylaxi: Yes Assessment/Plan Assessment/Plan Influenza - Shortness of breath - looks like pulmonary edema 2/ viral pneumonia, given her symptoms this is classic for influenza. Previously treated for chest pain back in 2017, had negative lexiscan 03/2017 and echo at that time. This sounds less like diastolic CHF. Supportive care, tamiflu HTN; well controlled Hx of PSVT: unknown type on toprol XL 50 mg Dysmetabolic X syndrome Arrhythmia: frequent PVCs FEN - ADA diet PPX - lovenox FULL CODE Dispo - inpatient, may require 2 midnights. KATHY PAGE MD Apr 05, 2019 16:21
[2019-04-05] MEDS ORDERED: KETOROLAC 30 MG/ML VIAL. IVP PRN (16:30)
[2019-04-05] MEDS: INSULIN LISPRO 300 UNITS/3 ML VIAL. SQ SCH ×2 (16:30→20:58)
[2019-04-05] MEDS: hydroCHLOROthiazide 25 MG TABLET PO SCH (16:39)
[2019-04-05] MEDS: METOPROLOL SUCC 24HR ER 25 MG TAB.ER.24H. PO SCH (16:40)
[2019-04-05] MEDS: amLODIPine BESYLATE 5 MG TABLET PO SCH (16:41)
[2019-04-05] MEDS: ASPIRIN ENTERIC COATED 81 MG TABLET.DR. PO SCH (16:41)
[2019-04-05] MEDS: LOSARTAN POTASSIUM 50 MG TABLET. PO SCH (16:41)
[2019-04-05 16:59] LABS: BARBITURATES NEG (NEG); BENZODIAZEPINES NEG (NEG); CANNABINOIDS NEG (NEG); COCAINE NEG (NEG); METHADONE NEG (NEG); OPIATES NEG (NEG); PHENCYCLIDINE NEG (NEG)
[2019-04-05 17:03] LABS: AMPHETAMINE/METHAMPHETAMINE NEG (NEG)
[2019-04-05 19:00] VITALS: BP 147/71
[2019-04-05] MEDS: IPRATRPIUM/ALBUTEROL 0.5/2.5MG 3 ML NEBU. NEB SCH (19:26)
[2019-04-05] MEDS: OSELTAMIVIR 75 MG CAPSULE PO SCH (21:13)
[2019-04-05] MEDS: ACETAMINOPHEN 325 MG TABLET. PO PRN (21:14)
[2019-04-05 23:00] VITALS: BP_SYST 128; BP_DIAS 71; BP_DIAS 79
[2019-04-06 03:19] VITALS: BP 152/87
[2019-04-06 07:00] VITALS: BP 172/90
[2019-04-06] MEDS: INSULIN LISPRO 300 UNITS/3 ML VIAL. SQ SCH ×4 (07:30→20:48)
[2019-04-06] MEDS: IPRATRPIUM/ALBUTEROL 0.5/2.5MG 3 ML NEBU. NEB SCH ×4 (07:33→20:38)
[2019-04-06] MEDS: OSELTAMIVIR 75 MG CAPSULE PO SCH ×2 (08:13→20:47)
[2019-04-06] MEDS: LOSARTAN POTASSIUM 50 MG TABLET. PO SCH (08:14)
[2019-04-06] MEDS: METOPROLOL SUCC 24HR ER 25 MG TAB.ER.24H. PO SCH (08:14)
[2019-04-06] MEDS: ASPIRIN ENTERIC COATED 81 MG TABLET.DR. PO SCH (08:14)
[2019-04-06] MEDS: hydroCHLOROthiazide 25 MG TABLET PO SCH (08:14)
[2019-04-06] MEDS: amLODIPine BESYLATE 5 MG TABLET PO SCH (08:15)
[2019-04-06] MEDS: ACETAMINOPHEN 325 MG TABLET. PO PRN ×2 (08:15→23:35)
--- NOTE | 2019-04-06 09:08 | EKG ---
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
--- NOTE | 2019-04-06 09:27 | NUR ---
Patient met sepsis on screen this morning. 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 Will continue to monitor.
--- NOTE | 2019-04-06 09:44 | PDOC ---
PROGRESS NOTES History of Present Illness History of Present Illness Images Images CXR - Vascularity is congested. Development of hazy airspace opacity seen in the left infrahilar region and left lung base. There is also mild haziness in the right lung base some of which may be exaggerated due to overlying breast shadow. No pleural effusion or pneumothorax seen. IMPRESSION: Mild cardiomegaly with Central vascular congestion and hazy bilateral opacities. Findings may be related to CHF or infiltrates. Correlate clinically. VTE Prophylaxis Ordered VTE Prophylaxis Devices: No VTE Pharmacological Prophylaxi: Yes impression Assessment/Plan Influenza - Shortness of breath - looks like pulmonary edema 2/ viral pneumonia, given her symptoms this is classic for influenza. Previously treated for chest pain back in 2017, had negative lexiscan 03/2017 and echo at that time. This sounds less like diastolic CHF. Supportive care, tamiflu HTN; well controlled Hx of PSVT: unknown type on toprol XL 50 mg Dysmetabolic X syndrome Arrhythmia: frequent PVCs LACTIC ACIDOSIS MORBID OBESITY FEN - ADA diet PPX - lovenox FULL CODE Dispo - inpatient, 2 midnights. IV ROCEPHIN IV FLUIDS RECHECK FLU SCREEN Vitals Vitals Vital Signs Date Time Temp Pulse Resp B/P (MAP) Pulse Ox O2 Delivery O2 Flow Rate FiO2 04/06/19 08:15 105 172/90 04/06/19 07:45 Room Air 04/06/19 07:33 96 04/06/19 07:00 101.5 18 101.5 Physical Exam Physical Exam Physical Exam General: Alert, Oriented X3, Cooperative, No acute distress HEENT: Atraumatic, PERRLA Lungs: Normal air movement, Other (Wheeze) Heart: S1S2, RRR, no thrills, no rubs, no gallops, no murmurs Abdomen: Normal bowel sounds, Soft, No tenderness, No hepatosplenomegaly, No masses Extremities: No clubbing, No cyanosis, No edema, Normal pulses, No tenderness/swelling Skin: No rashes, No breakdown, No significant lesion Neuro: Normal gait, Normal speech, Strength at 5/5 X4 ext, Normal tone, Sensation intact, Cranial nerves 3-12 NL, Reflexes 2+ Psych/Mental Status: Mental status NL, Mood NL General: Alert, Oriented X3, Cooperative, No acute distress Heart: Regular rate Lungs: Crackles Abdomen: Normal bowel sounds, Soft, No tenderness, No hepatosplenomegaly, No masses Extremities: No clubbing, No cyanosis, No edema, Normal pulses, No tenderness/swelling Skin: No rashes, No breakdown, No significant lesion Labs LABS Laboratory Tests Test 04/05/19 11:08 04/05/19 11:15 04/05/19 11:30 04/05/19 16:34 Influenza Type A Antigen Negative (NEGATIVE) Influenza Type B Antigen Negative (NEGATIVE) White Blood Count 9.8 x10^3/uL (4.0-11.0) Red Blood Count 5.31 x10^6/uL (3.50-5.40) Hemoglobin 14.6 g/dL (12.0-15.5) Hematocrit 44.3 % (36.0-47.0) Mean Corpuscular Volume 83 fL (79-100) Mean Corpuscular Hemoglobin 28 pg (25-35) Mean Corpuscular Hemoglobin Concent 33 g/dL (31-37) Red Cell Distribution Width 15.1 % (11.5-14.5) Platelet Count 268 x10^3/uL (140-400) Neutrophils (%) (Auto) 79 % (31-73) Lymphocytes (%) (Auto) 10 % (24-48) Monocytes (%) (Auto) 10 % (0-9) Eosinophils (%) (Auto) 1 % (0-3) Basophils (%) (Auto) 1 % (0-3) Neutrophils # (Auto) 7.8 x10^3/uL (1.8-7.7) Lymphocytes # (Auto) 0.9 x10^3/uL (1.0-4.8) Monocytes # (Auto) 0.9 x10^3/uL (0.0-1.1) Eosinophils # (Auto) 0.1 x10^3/uL (0.0-0.7) Basophils # (Auto) 0.1 x10^3/uL (0.0-0.2) Prothrombin Time 13.1 SEC (11.7-14.0) Prothromb Time International Ratio 1.0 (0.8-1.1) Activated Partial Thromboplast Time 32 SEC (24-38) Sodium Level 140 mmol/L (136-145) Potassium Level 3.9 mmol/L (3.5-5.1) Chloride Level 99 mmol/L (98-107) Carbon Dioxide Level 27 mmol/L (21-32) Anion Gap 14 (6-14) Blood Urea Nitrogen 9 mg/dL (7-20) Creatinine 0.9 mg/dL (0.6-1.0) Estimated GFR (Cockcroft-Gault) 79.6 BUN/Creatinine Ratio 10 (6-20) Glucose Level 152 mg/dL (70-99) Lactic Acid Level 1.9 mmol/L (0.4-2.0) Calcium Level 9.8 mg/dL (8.5-10.1) Magnesium Level 1.9 mg/dL (1.8-2.4) Total Bilirubin 0.9 mg/dL (0.2-1.0) Aspartate Amino Transf (AST/SGOT) 19 U/L (15-37) Alanine Aminotransferase (ALT/SGPT) 23 U/L (14-59) Alkaline Phosphatase 90 U/L (46-116) Troponin I Quantitative < 0.017 ng/mL (0.000-0.055) WJ-[id number]-[id number]-Type Natriuretic Peptide 2212 pg/mL (0-124) Total Protein 7.7 g/dL (6.4-8.2) Albumin 4.2 g/dL (3.4-5.0) Albumin/Globulin Ratio 1.2 (1.0-1.7) Procalcitonin < 0.10 ng/mL (0.00-0.10) Urine Collection Type Void Urine Color Yellow Urine Clarity Clear Urine pH 7.5 Urine Specific [place] 1.010 Urine Protein Negative mg/dL (NEG-TRACE) Urine Glucose (UA) Negative mg/dL (NEG) Urine Ketones (Stick) Negative mg/dL (NEG) Urine Blood Negative (NEG) Urine Nitrite Negative (NEG) Urine Bilirubin Negative (NEG) Urine Urobilinogen Dipstick 0.2 mg/dL (0.2 mg/dL) Urine Leukocyte Esterase Negative (NEG) Urine RBC Occ /HPF (0-2) Urine WBC 1-4 /HPF (0-4) Urine Squamous Epithelial Cells Many /LPF Urine Bacteria Few /HPF (0-FEW) Urine Mucus Slight /LPF Urine Opiates Screen Neg (NEG) Urine Methadone Screen Neg (NEG) Urine Barbiturates Neg (NEG) Urine Phencyclidine Screen Neg (NEG) Urine Amphetamine/Methamphetamine Neg (NEG) Urine Benzodiazepines Screen Neg (NEG) Urine Cocaine Screen Neg (NEG) Urine Cannabinoids Screen Neg (NEG) Urine Ethyl Alcohol Neg (NEG) Glucose (Fingerstick) 130 mg/dL (70-99) Test 04/05/19 20:37 04/06/19 07:15 Glucose (Fingerstick) 130 mg/dL (70-99) 146 mg/dL (70-99) Assessment and Plan Assessmemt and Plan Problems Medical Problems: (1) Acute exacerbation of CHF (congestive heart failure) Status: Acute (2) Pneumonia Status: Acute Comment Review of Relevant I have reviewed the following items ana paula (where applicable) has been applied. Labs Laboratory Tests Test 04/05/19 11:08 04/05/19 11:15 04/05/19 11:30 04/05/19 16:34 Influenza Type A Antigen Negative (NEGATIVE) Influenza Type B Antigen Negative (NEGATIVE) White Blood Count 9.8 x10^3/uL (4.0-11.0) Red Blood Count 5.31 x10^6/uL (3.50-5.40) Hemoglobin 14.6 g/dL (12.0-15.5) Hematocrit 44.3 % (36.0-47.0) Mean Corpuscular Volume 83 fL (79-100) Mean Corpuscular Hemoglobin 28 pg (25-35) Mean Corpuscular Hemoglobin Concent 33 g/dL (31-37) Red Cell Distribution Width 15.1 % (11.5-14.5) Platelet Count 268 x10^3/uL (140-400) Neutrophils (%) (Auto) 79 % (31-73) Lymphocytes (%) (Auto) 10 % (24-48) Monocytes (%) (Auto) 10 % (0-9) Eosinophils (%) (Auto) 1 % (0-3) Basophils (%) (Auto) 1 % (0-3) Neutrophils # (Auto) 7.8 x10^3/uL (1.8-7.7) Lymphocytes # (Auto) 0.9 x10^3/uL (1.0-4.8) Monocytes # (Auto) 0.9 x10^3/uL (0.0-1.1) Eosinophils # (Auto) 0.1 x10^3/uL (0.0-0.7) Basophils # (Auto) 0.1 x10^3/uL (0.0-0.2) Prothrombin Time 13.1 SEC (11.7-14.0) Prothromb Time International Ratio 1.0 (0.8-1.1) Activated Partial Thromboplast Time 32 SEC (24-38) Sodium Level 140 mmol/L (136-145) Potassium Level 3.9 mmol/L (3.5-5.1) Chloride Level 99 mmol/L (98-107) Carbon Dioxide Level 27 mmol/L (21-32) Anion Gap 14 (6-14) Blood Urea Nitrogen 9 mg/dL (7-20) Creatinine 0.9 mg/dL (0.6-1.0) Estimated GFR (Cockcroft-Gault) 79.6 BUN/Creatinine Ratio 10 (6-20) Glucose Level 152 mg/dL (70-99) Lactic Acid Level 1.9 mmol/L (0.4-2.0) Calcium Level 9.8 mg/dL (8.5-10.1) Magnesium Level 1.9 mg/dL (1.8-2.4) Total Bilirubin 0.9 mg/dL (0.2-1.0) Aspartate Amino Transf (AST/SGOT) 19 U/L (15-37) Alanine Aminotransferase (ALT/SGPT) 23 U/L (14-59) Alkaline Phosphatase 90 U/L (46-116) Troponin I Quantitative < 0.017 ng/mL (0.000-0.055) KB-Uej-E-Type Natriuretic Peptide 2212 pg/mL (0-124) Total Protein 7.7 g/dL (6.4-8.2) Albumin 4.2 g/dL (3.4-5.0) Albumin/Globulin Ratio 1.2 (1.0-1.7) Procalcitonin < 0.10 ng/mL (0.00-0.10) Urine Collection Type Void Urine Color Yellow Urine Clarity Clear Urine pH 7.5 Urine Specific [place] 1.010 Urine Protein Negative mg/dL (NEG-TRACE) Urine Glucose (UA) Negative mg/dL (NEG) Urine Ketones (Stick) Negative mg/dL (NEG) Urine Blood Negative (NEG) Urine Nitrite Negative (NEG) Urine Bilirubin Negative (NEG) Urine Urobilinogen Dipstick 0.2 mg/dL (0.2 mg/dL) Urine Leukocyte Esterase Negative (NEG) Urine RBC Occ /HPF (0-2) Urine WBC 1-4 /HPF (0-4) Urine Squamous Epithelial Cells Many /LPF Urine Bacteria Few /HPF (0-FEW) Urine Mucus Slight /LPF Urine Opiates Screen Neg (NEG) Urine Methadone Screen Neg (NEG) Urine Barbiturates Neg (NEG) Urine Phencyclidine Screen Neg (NEG) Urine Amphetamine/Methamphetamine Neg (NEG) Urine Benzodiazepines Screen Neg (NEG) Urine Cocaine Screen Neg (NEG) Urine Cannabinoids Screen Neg (NEG) Urine Ethyl Alcohol Neg (NEG) Glucose (Fingerstick) 130 mg/dL (70-99) Test 04/05/19 20:37 04/06/19 07:15 Glucose (Fingerstick) 130 mg/dL (70-99) 146 mg/dL (70-99) Laboratory Tests Test 04/05/19 11:08 04/05/19 11:15 04/05/19 11:30 04/05/19 16:34 Influenza Type A Antigen Negative (NEGATIVE) Influenza Type B Antigen Negative (NEGATIVE) White Blood Count 9.8 x10^3/uL (4.0-11.0) Red Blood Count 5.31 x10^6/uL (3.50-5.40) Hemoglobin 14.6 g/dL (12.0-15.5) Hematocrit 44.3 % (36.0-47.0) Mean Corpuscular Volume 83 fL (79-100) Mean Corpuscular Hemoglobin 28 pg (25-35) Mean Corpuscular Hemoglobin Concent 33 g/dL (31-37) Red Cell Distribution Width 15.1 % (11.5-14.5) Platelet Count 268 x10^3/uL (140-400) Neutrophils (%) (Auto) 79 % (31-73) Lymphocytes (%) (Auto) 10 % (24-48) Monocytes (%) (Auto) 10 % (0-9) Eosinophils (%) (Auto) 1 % (0-3) Basophils (%) (Auto) 1 % (0-3) Neutrophils # (Auto) 7.8 x10^3/uL (1.8-7.7) Lymphocytes # (Auto) 0.9 x10^3/uL (1.0-4.8) Monocytes # (Auto) 0.9 x10^3/uL (0.0-1.1) Eosinophils # (Auto) 0.1 x10^3/uL (0.0-0.7) Basophils # (Auto) 0.1 x10^3/uL (0.0-0.2) Prothrombin Time 13.1 SEC (11.7-14.0) Prothromb Time International Ratio 1.0 (0.8-1.1) Activated Partial Thromboplast Time 32 SEC (24-38) Sodium Level 140 mmol/L (136-145) Potassium Level 3.9 mmol/L (3.5-5.1) Chloride Level 99 mmol/L (98-107) Carbon Dioxide Level 27 mmol/L (21-32) Anion Gap 14 (6-14) Blood Urea Nitrogen 9 mg/dL (7-20) Creatinine 0.9 mg/dL (0.6-1.0) Estimated GFR (Cockcroft-Gault) 79.6 BUN/Creatinine Ratio 10 (6-20) Glucose Level 152 mg/dL (70-99) Lactic Acid Level 1.9 mmol/L (0.4-2.0) Calcium Level 9.8 mg/dL (8.5-10.1) Magnesium Level 1.9 mg/dL (1.8-2.4) Total Bilirubin 0.9 mg/dL (0.2-1.0) Aspartate Amino Transf (AST/SGOT) 19 U/L (15-37) Alanine Aminotransferase (ALT/SGPT) 23 U/L (14-59) Alkaline Phosphatase 90 U/L (46-116) Troponin I Quantitative < 0.017 ng/mL (0.000-0.055) JF-Ncj-T-Type Natriuretic Peptide 2212 pg/mL (0-124) Total Protein 7.7 g/dL (6.4-8.2) Albumin 4.2 g/dL (3.4-5.0) Albumin/Globulin Ratio 1.2 (1.0-1.7) Procalcitonin < 0.10 ng/mL (0.00-0.10) Urine Collection Type Void Urine Color Yellow Urine Clarity Clear Urine pH 7.5 Urine Specific [place] 1.010 Urine Protein Negative mg/dL (NEG-TRACE) Urine Glucose (UA) Negative mg/dL (NEG) Urine Ketones (Stick) Negative mg/dL (NEG) Urine Blood Negative (NEG) Urine Nitrite Negative (NEG) Urine Bilirubin Negative (NEG) Urine Urobilinogen Dipstick 0.2 mg/dL (0.2 mg/dL) Urine Leukocyte Esterase Negative (NEG) Urine RBC Occ /HPF (0-2) Urine WBC 1-4 /HPF (0-4) Urine Squamous Epithelial Cells Many /LPF Urine Bacteria Few /HPF (0-FEW) Urine Mucus Slight /LPF Urine Opiates Screen Neg (NEG) Urine Methadone Screen Neg (NEG) Urine Barbiturates Neg (NEG) Urine Phencyclidine Screen Neg (NEG) Urine Amphetamine/Methamphetamine Neg (NEG) Urine Benzodiazepines Screen Neg (NEG) Urine Cocaine Screen Neg (NEG) Urine Cannabinoids Screen Neg (NEG) Urine Ethyl Alcohol Neg (NEG) Glucose (Fingerstick) 130 mg/dL (70-99) Test 04/05/19 20:37 04/06/19 07:15 Glucose (Fingerstick) 130 mg/dL (70-99) 146 mg/dL (70-99) Medications Current Medications Albuterol/ Ipratropium (Duoneb) 3 ml 1X ONCE NEB Last administered on 04/05/19at 11:31; Start 04/05/19 at 11:15; Stop 04/05/19 at 11:16; Status DC Sodium Chloride 1,000 ml @ 1,000 mls/hr 1X ONCE IV Last administered on 04/05at 12:06; Start 04/05/19 at 11:15; Stop 04/05/19 at 12:14; Status DC Piperacillin Sod/ Tazobactam Sod 3.375 gm/Sodium Chloride 50 ml @ 100 mls/hr 1X STAT IV Last administered on 04/05/19at 12:09; Start 04/05/19 at 11:31; Stop 04/05/19 at 12:00; Status DC Levofloxacin/ Dextrose 150 ml @ 100 mls/hr 1X STAT IV Last administered on 04/05/19at 12:47; Start 04/05/19 at 11:31; Stop 04/05/19 at 13:00; Status DC Ondansetron HCl (Zofran) 4 mg PRN Q8HRS PRN IV NAUSEA/VOMITING; Start 04/05/19 at 13:30; Stop 04/05/19 at 16:00; Status DC Fentanyl Citrate (Fentanyl 2ml Vial) 50 mcg PRN Q1HR PRN IV PAIN Last administered on 04/05/19at 15:37; Start 04/05/19 at 13:30; Stop 04/06/19 at 13:29 Acetaminophen (Tylenol) 1,000 mg 1X STAT PO Last administered on 04/05/19at 15:35; Start 04/05/19 at 14:26; Stop 04/05/19 at 14:28; Status DC Ondansetron HCl (Zofran) 4 mg PRN Q4HRS PRN IV NAUSEA/VOMITING; Start 04/05/19 at 16:00 Amlodipine Besylate (Norvasc) 5 mg DAILY PO Last administered on 04/06/19at 08:15; Start 04/05/19 at 17:00 Aspirin (Ecotrin) 81 mg DAILY PO Last administered on 04/06/19at 08:14; Start 04/05/19 at 17:00 Cyclobenzaprine HCl (Flexeril) 10 mg PRN TID PRN PO MUSCLE SPASMS; Start 04/05/19 at 16:00 Hydrochlorothiazide (Hydrodiuril) 50 mg DAILY PO Last administered on 04/06/19at 08:14; Start 04/05/19 at 17:00 Metoprolol Succinate (Toprol Xl) 25 mg DAILY PO Last administered on 04/06/19at 08:14; Start 04/05/19 at 17:00 Losartan Potassium (Cozaar) 100 mg DAILY PO Last administered on 04/06/19at 08:14; Start 04/05/19 at 17:00 Furosemide (Lasix) 40 mg 1X ONCE IVP ; Start 04/05/19 at 16:00; Stop 04/05/19 at 16:18; Status DC Insulin Human Lispro (HumaLOG) 0-7 UNITS TIDACHC SQ ; Start 04/05/19 at 16:30 Dextrose (Dextrose 50%-Water Syringe) 12.5 gm PRN Q15MIN PRN IV SEE COMMENTS; Start 04/05/19 at 16:15 Dextrose (Iv Dextrose 5%) 250 ml PRN Q15MIN PRN IV SEE COMMENTS; Start 04/05/19 at 16:15 Oseltamivir Phosphate (Tamiflu) 75 mg BID PO Last administered on 04/06/19at 08:13; Start 04/05/19 at 21:00; Stop 04/10/19 at 20:59 Albuterol/ Ipratropium (Duoneb) 3 ml RTQID NEB Last administered on 04/06/19at 07:33; Start 04/05/19 at 20:00 Ketorolac Tromethamine (Toradol 30mg Vial) 30 mg PRN Q6HRS PRN IVP PAIN Last administered on 04/06/19at 08:19; Start 04/05/19 at 16:30; Stop 04/10/19 at 16:29 Acetaminophen (Tylenol) 650 mg PRN Q6HRS PRN PO pain/temp Last administered on 04/06/19at 08:15; Start 04/05/19 at 20:45 Active Scripts Active Cyclobenzaprine Hcl 10 Mg Tablet 10 Mg PO TID PRN Naproxen 375 Mg Tablet 375 Mg PO BID Reported Trulicity (Dulaglutide) 0.75 Mg/0.5 Ml Pen.injctr 0.75 Mg SQ QWE Omeprazole 20 Mg Tablet.dr 20 Mg PO PRN DAILY PRN Amlodipine Besylate 5 Mg Tablet 5 Mg PO DAILY Diovan (Valsartan) 320 Mg Tablet 320 Mg PO DAILY Metoprolol Succinate ( Xl ) (Metoprolol Succinate) 25 Mg Tab.er.24h 1 Tab PO DAILY Vitals/I & O Vital Sign - Last 24 Hours 04/05/19 04/05/19 04/05/19 04/05/19 10:50 11:18 11:31 11:48 Temp 102.1 102.1 Pulse 110 57 105 Resp 25 B/P (MAP) 149/89 (109) 160/92 (114) 163/94 (117) Pulse Ox 92 94 93 92 O2 Delivery Room Air Room Air Room Air 04/05/19 04/05/19 04/05/19 04/05/19 12:18 12:48 13:18 13:48 Pulse 102 106 99 110 Resp 25 25 28 B/P (MAP) 154/77 (102) 157/75 (102) 144/63 (90) 164/81 (108) Pulse Ox 94 92 93 94 O2 Delivery Room Air 2/9/20 04/05/19 04/05/19 04/05/19 14:19 15:45 16:21 16:22 Temp 102.6 102.0 102.6 102.0 Pulse 111 Resp 18 B/P (MAP) 142/72 (95) Pulse Ox 90 O2 Delivery Room Air Room Air Room Air 04/05/19 04/05/19 04/05/19 04/05/19 16:40 19:00 19:31 20:45 Temp 99.5 99.5 Pulse 111 65 Resp 18 B/P (MAP) 142/72 147/71 (96) Pulse Ox 96 96 O2 Delivery Room Air Room Air Room Air 04/05/19 04/06/19 04/06/19 04/06/19 23:00 03:19 07:00 07:33 Temp 99.5 99.8 101.5 99.5 99.8 101.5 Pulse 97 61 105 Resp 18 18 18 B/P (MAP) 128/79 (95) 152/87 (108) 172/90 (117) Pulse Ox 95 94 96 96 O2 Delivery Room Air Room Air Room Air Room Air 04/06/19 04/06/19 04/06/19 04/06/19 07:45 08:14 08:14 08:15 Pulse 105 105 105 B/P (MAP) 172/90 172/90 172/90 O2 Delivery Room Air Intake and Output 04/05/19 04/05/19 04/06/19 14:59 22:59 06:59 Intake Total 200 ml 120 ml 800 ml Output Total 800 ml 200 ml Balance 200 ml -680 ml 600 ml VIVEK GAINES MD Apr 06, 2019 09:44
[2019-04-06 10:05] LABS: BASO % 1 % (0-3); EOS % 0 % (0-3); HEMOGLOBIN 13.3 g/dL (12.0-15.5); LYMPH % 15 % (24-48); MEAN CORPUSCULAR HEMOGLOBIN 27 pg (25-35); MEAN CORPUSCULAR HGB CONC 33 g/dL (31-37); MEAN CORPUSCULAR VOLUME 83 fL (79-100); MONO # 1.2 x10^3/uL (0.0-1.1); MONO % 18 % (0-9); NEUT # 4.4 x10^3/uL (1.8-7.7); NEUT % 67 % (31-73); PLATELET COUNT 248 x10^3/uL (140-400); RED BLOOD COUNT 4.85 x10^6/uL (3.50-5.40); RED CELL DISTRIBUTION WIDTH 15.3 % (11.5-14.5); WHITE BLOOD COUNT 6.6 x10^3/uL (4.0-11.0)
--- NOTE | 2019-04-06 10:24 | NUR ---
IP: Pt has a negative influenza screen, however, it is not 100% sensitive. Pt to be in droplet precautions for continued dx and tx of influenza. Maintain precautions for 7 days and 24 hours without a fever, whichever is longest.
[2019-04-06 10:37] VITALS: BP 129/55
--- NOTE | 2019-04-06 12:17 | NUR ---
SW following. Discussed with RN, pt from home - has flu. RN advised now SW needs. HCFS following for self pay status. SW will continue to follow.
[2019-04-06 13:55] LABS: INFLUENZA A PATIENT NEGATIVE (NEGATIVE); INFLUENZA B PATIENT NEGATIVE (NEGATIVE)
[2019-04-06 15:00] VITALS: BP 161/64
[2019-04-06] MEDS: IV NORMAL SALINE 1000ML BAG 1,000 ML IV SCH (15:20)
[2019-04-06] MEDS: cefTRIAXone IV Push 1 GM VIAL. IVP SCH (15:20)
[2019-04-06] MEDS: IBUPROFEN 400 MG TABLET. PO PRN (17:15)
[2019-04-06 19:00] VITALS: BP 142/68
[2019-04-06 23:00] VITALS: BP 157/83
[2019-04-06 23:08] LABS: HEMOGLOBIN A1C 7.9 % (4.8-5.6)
[2019-04-07] MEDS: IV NORMAL SALINE 1000ML BAG 1,000 ML IV SCH ×3 (01:21→21:16)
[2019-04-07 03:00] VITALS: BP 134/82
[2019-04-07 07:00] VITALS: BP 142/64
[2019-04-07] MEDS: IPRATRPIUM/ALBUTEROL 0.5/2.5MG 3 ML NEBU. NEB SCH ×3 (07:17→15:29)
[2019-04-07] MEDS: INSULIN LISPRO 300 UNITS/3 ML VIAL. SQ SCH ×4 (07:30→21:00)
[2019-04-07] MEDS: ASPIRIN ENTERIC COATED 81 MG TABLET.DR. PO SCH (08:34)
[2019-04-07] MEDS: amLODIPine BESYLATE 5 MG TABLET PO SCH (08:35)
[2019-04-07] MEDS: LOSARTAN POTASSIUM 50 MG TABLET. PO SCH (08:36)
[2019-04-07] MEDS: hydroCHLOROthiazide 25 MG TABLET PO SCH (08:36)
[2019-04-07] MEDS: OSELTAMIVIR 75 MG CAPSULE PO SCH (08:36)
[2019-04-07] MEDS: METOPROLOL SUCC 24HR ER 25 MG TAB.ER.24H. PO SCH (08:36)
[2019-04-07] MEDS: IBUPROFEN 400 MG TABLET. PO PRN ×2 (08:37→21:15)
[2019-04-07 10:43] VITALS: BP 136/63
--- NOTE | 2019-04-07 11:06 | NUR ---
SW following. Discussed with RN. RN advised no SW needs, anticipates possible discharge home with self care today or tomorrow (04/08/2019).
--- NOTE | 2019-04-07 13:40 | PDOC ---
PROGRESS NOTES Chief Complaint Chief Complaint sepsis, acute viral illness clinical Influenza on admit, swab neg, - Shortness of breath - looks like pulmonary edema 2/2 viral pneumonia, given her symptoms this is classic for influenza. Previously treated for chest pain back in 2017, had negative lexiscan 03/2017 and echo at that time. This sounds less like diastolic CHF. Supportive care, tamiflu HTN; well controlled Hx of PSVT: unknown type on toprol XL 50 mg Dysmetabolic X syndrome obese, bmi 41 History of Present Illness History of Present Illness FEN - ADA diet PPX - lovenox FULL CODE Dispo - inpatient, 2 midnights. IV ROCEPHIN IV FLUIDS RECHECK FLU SCREEN Vitals Vitals Vital Signs Date Time Temp Pulse Resp B/P (MAP) Pulse Ox O2 Delivery O2 Flow Rate FiO2 04/07/19 11:15 Room Air 04/07/19 10:43 99.9 54 18 136/63 (87) 95 99.9 Physical Exam Physical Exam Physical Exam General: Alert, Oriented X3, Cooperative, No acute distress HEENT: Atraumatic, PERRLA Lungs: Normal air movement, Other (Wheeze) Heart: S1S2, RRR, no thrills, no rubs, no gallops, no murmurs Abdomen: Normal bowel sounds, Soft, No tenderness, No hepatosplenomegaly, No masses Extremities: No clubbing, No cyanosis, No edema, Normal pulses, No tenderness/swelling Skin: No rashes, No breakdown, No significant lesion Neuro: Normal gait, Normal speech, Strength at 5/5 X4 ext, Normal tone, Sensation intact, Cranial nerves 3-12 NL, Reflexes 2+ Psych/Mental Status: Mental status NL, Mood NL General: Alert, Oriented X3, Cooperative, No acute distress Heart: Regular rate Lungs: Crackles Abdomen: Normal bowel sounds, Soft, No tenderness, No hepatosplenomegaly, No masses Extremities: No clubbing, No cyanosis, No edema, Normal pulses, No tenderness/swelling Skin: No rashes, No breakdown, No significant lesion Labs LABS Laboratory Tests Test 04/06/19 16:35 04/06/19 20:48 04/07/19 07:12 04/07/19 11:33 Glucose (Fingerstick) 147 mg/dL (70-99) 194 mg/dL (70-99) 126 mg/dL (70-99) 125 mg/dL (70-99) Assessment and Plan Assessmemt and Plan Problems Medical Problems: (1) Acute exacerbation of CHF (congestive heart failure) Status: Acute (2) Pneumonia Status: Acute Comment Review of Relevant I have reviewed the following items ana paula (where applicable) has been applied. Labs Laboratory Tests Test 04/05/19 16:34 04/05/19 20:37 04/06/19 07:15 04/06/19 09:50 Glucose (Fingerstick) 130 mg/dL (70-99) 130 mg/dL (70-99) 146 mg/dL (70-99) White Blood Count 6.6 x10^3/uL (4.0-11.0) Red Blood Count 4.85 x10^6/uL (3.50-5.40) Hemoglobin 13.3 g/dL (12.0-15.5) Hematocrit 40.0 % (36.0-47.0) Mean Corpuscular Volume 83 fL (79-100) Mean Corpuscular Hemoglobin 27 pg (25-35) Mean Corpuscular Hemoglobin Concent 33 g/dL (31-37) Red Cell Distribution Width 15.3 % (11.5-14.5) Platelet Count 248 x10^3/uL (140-400) Neutrophils (%) (Auto) 67 % (31-73) Lymphocytes (%) (Auto) 15 % (24-48) Monocytes (%) (Auto) 18 % (0-9) Eosinophils (%) (Auto) 0 % (0-3) Basophils (%) (Auto) 1 % (0-3) Neutrophils # (Auto) 4.4 x10^3/uL (1.8-7.7) Lymphocytes # (Auto) 1.0 x10^3/uL (1.0-4.8) Monocytes # (Auto) 1.2 x10^3/uL (0.0-1.1) Eosinophils # (Auto) 0.0 x10^3/uL (0.0-0.7) Basophils # (Auto) 0.0 x10^3/uL (0.0-0.2) Lactic Acid Level 2.1 mmol/L (0.4-2.0) Test 04/06/19 11:13 04/06/19 13:15 04/06/19 13:16 04/06/19 16:35 Glucose (Fingerstick) 132 mg/dL (70-99) 147 mg/dL (70-99) Lactic Acid Level 1.8 mmol/L (0.4-2.0) Influenza Type A Antigen Negative (NEGATIVE) Influenza Type B Antigen Negative (NEGATIVE) Test 04/06/19 20:48 04/07/19 07:12 04/07/19 11:33 Glucose (Fingerstick) 194 mg/dL (70-99) 126 mg/dL (70-99) 125 mg/dL (70-99) Laboratory Tests Test 04/06/19 16:35 04/06/19 20:48 04/07/19 07:12 04/07/19 11:33 Glucose (Fingerstick) 147 mg/dL (70-99) 194 mg/dL (70-99) 126 mg/dL (70-99) 125 mg/dL (70-99) Microbiology 04/05/19 Blood Culture - Preliminary, Resulted NO GROWTH AFTER 1 DAY Medications Current Medications Albuterol/ Ipratropium (Duoneb) 3 ml 1X ONCE NEB Last administered on 04/05/19at 11:31; Start 04/05/19 at 11:15; Stop 04/05/19 at 11:16; Status DC Sodium Chloride 1,000 ml @ 1,000 mls/hr 1X ONCE IV Last administered on 04/05/19at 12:06; Start 04/05/19 at 11:15; Stop 04/05/19 at 12:14; Status DC Piperacillin Sod/ Tazobactam Sod 3.375 gm/Sodium Chloride 50 ml @ 100 mls/hr 1X STAT IV Last administered on 04/05/19at 12:09; Start 04/05/19 at 11:31; Stop 04/05/19 at 12:00; Status DC Levofloxacin/ Dextrose 150 ml @ 100 mls/hr 1X STAT IV Last administered on 04/05/19at 12:47; Start 04/05/19 at 11:31; Stop 04/05/19 at 13:00; Status DC Ondansetron HCl (Zofran) 4 mg PRN Q8HRS PRN IV NAUSEA/VOMITING; Start 04/05/19 at 13:30; Stop 04/05/19 at 16:00; Status DC Fentanyl Citrate (Fentanyl 2ml Vial) 50 mcg PRN Q1HR PRN IV PAIN Last administered on 04/05/19at 15:37; Start 04/05/19 at 13:30; Stop 04/06/19 at 13:29; Status DC Acetaminophen (Tylenol) 1,000 mg 1X STAT PO Last administered on 04/05/19at 15:35; Start 04/05/19 at 14:26; Stop 04/05/19 at 14:28; Status DC Ondansetron HCl (Zofran) 4 mg PRN Q4HRS PRN IV NAUSEA/VOMITING; Start 04/05/19 at 16:00 Amlodipine Besylate (Norvasc) 5 mg DAILY PO Last administered on 04/07/19at 08:35; Start 04/05/19 at 17:00 Aspirin (Ecotrin) 81 mg DAILY PO Last administered on 04/07/19at 08:34; Start 04/05/19 at 17:00 Cyclobenzaprine HCl (Flexeril) 10 mg PRN TID PRN PO MUSCLE SPASMS; Start 04/05/19 at 16:00 Hydrochlorothiazide (Hydrodiuril) 50 mg DAILY PO Last administered on 04/07/19at 08:36; Start 04/05/19 at 17:00 Metoprolol Succinate (Toprol Xl) 25 mg DAILY PO Last administered on 04/07/19at 08:36; Start 04/05/19 at 17:00 Losartan Potassium (Cozaar) 100 mg DAILY PO Last administered on 04/07/19at 08:36; Start 04/05/19 at 17:00 Furosemide (Lasix) 40 mg 1X ONCE IVP ; Start 04/05/19 at 16:00; Stop 04/05/19 at 16:18; Status DC Insulin Human Lispro (HumaLOG) 0-7 UNITS TIDACHC SQ ; Start 04/05/19 at 16:30 Dextrose (Dextrose 50%-Water Syringe) 12.5 gm PRN Q15MIN PRN IV SEE COMMENTS; Start 04/05/19 at 16:15 Dextrose (Iv Dextrose 5%) 250 ml PRN Q15MIN PRN IV SEE COMMENTS; Start 04/05/19 at 16:15 Oseltamivir Phosphate (Tamiflu) 75 mg BID PO Last administered on 04/07/19at 08:36; Start 04/05/19 at 21:00; Stop 04/10/19 at 20:59 Albuterol/ Ipratropium (Duoneb) 3 ml RTQID NEB Last administered on 04/07/19at 11:15; Start 04/05/19 at 20:00 Ketorolac Tromethamine (Toradol 30mg Vial) 30 mg PRN Q6HRS PRN IVP PAIN Last administered on 04/06/19at 08:19; Start 04/05/19 at 16:30; Stop 04/06/19 at 17:06; Status DC Acetaminophen (Tylenol) 650 mg PRN Q6HRS PRN PO pain/temp Last administered on 04/06/19at 23:35; Start 04/05/19 at 20:45 Ceftriaxone Sodium (Rocephin) 1 gm Q24H IVP Last administered on 04/06/19at 15:20; Start 04/06/19 at 15:00 Sodium Chloride 1,000 ml @ 100 mls/hr Q10H IV Last administered on 04/07/19at 01:21; Start 04/06/19 at 14:15 Ibuprofen (Motrin) 800 mg PRN Q6HRS PRN PO INFLAMMATION Last administered on 04/07/19at 08:37; Start 04/06/19 at 17:15 Active Scripts Active Cyclobenzaprine Hcl 10 Mg Tablet 10 Mg PO TID PRN Naproxen 375 Mg Tablet 375 Mg PO BID Reported Trulicity (Dulaglutide) 0.75 Mg/0.5 Ml Pen.injctr 0.75 Mg SQ QWE Omeprazole 20 Mg Tablet.dr 20 Mg PO PRN DAILY PRN Amlodipine Besylate 5 Mg Tablet 5 Mg PO DAILY Diovan (Valsartan) 320 Mg Tablet 320 Mg PO DAILY Metoprolol Succinate ( Xl ) (Metoprolol Succinate) 25 Mg Tab.er.24h 1 Tab PO DAILY Vitals/I & O Vital Sign - Last 24 Hours 04/06/19 04/06/19 04/06/19 04/06/19 15:00 15:52 19:00 20:00 Temp 100.0 99.2 100.0 99.2 Pulse 52 70 Resp 18 18 B/P (MAP) 161/64 (96) 142/68 (92) Pulse Ox 96 96 96 O2 Delivery Room Air Room Air 04/06/19 04/06/19 04/07/19 04/07/19 20:39 23:00 03:00 04:00 Temp 100.5 100.1 99.5 100.5 100.1 99.5 Pulse 95 72 Resp 16 16 B/P (MAP) 157/83 (107) 134/82 (99) Pulse Ox 95 94 94 O2 Delivery Room Air 04/07/19 04/07/19 04/07/19 04/07/19 07:00 08:00 08:35 08:36 Temp 99.8 99.8 Pulse 102 102 102 Resp 18 B/P (MAP) 142/64 (90) 142/64 142/64 Pulse Ox 96 O2 Delivery Room Air Room Air 04/07/19 04/07/19 04/07/19 08:36 10:43 11:15 Temp 99.9 99.9 Pulse 102 54 Resp 18 B/P (MAP) 142/64 136/63 (87) Pulse Ox 95 O2 Delivery Room Air Room Air Intake and Output 04/06/19 04/06/19 04/07/19 15:00 23:00 07:00 Intake Total 600 ml 300 ml 240 ml Balance 600 ml 300 ml 240 ml HARLEY MENON MD Apr 07, 2019 13:40
[2019-04-07 14:58] VITALS: BP 120/73
[2019-04-07] MEDS ORDERED: ENOXAPARIN 40 MG/0.4 ML SYRINGE. SQ SCH (15:00)
[2019-04-07] MEDS: cefTRIAXone IV Push 1 GM VIAL. IVP SCH (16:13)
[2019-04-07 19:00] VITALS: BP 132/77
[2019-04-07 23:00] VITALS: BP 125/84
[2019-04-07] MEDS ORDERED: guaiFENesin/CODEINE 100mg/10mg 5 ML LIQUID PO PRN (23:30)
[2019-04-07] MEDS ORDERED: BENZOCAINE/MENTHOL LOZENGE. PO PRN (23:30)
[2019-04-08] MEDS: BENZONATATE 100 MG CAPSULE. PO SCH ×2 (00:05→09:48)
[2019-04-08 03:00] VITALS: BP 132/77
[2019-04-08] MEDS: IV NORMAL SALINE 1000ML BAG 1,000 ML IV SCH (06:15)
[2019-04-08 07:00] VITALS: BP 128/68
[2019-04-08] MEDS: INSULIN LISPRO 300 UNITS/3 ML VIAL. SQ SCH ×2 (07:30→11:30)
[2019-04-08] MEDS: IPRATRPIUM/ALBUTEROL 0.5/2.5MG 3 ML NEBU. NEB SCH ×2 (08:16→12:38)
[2019-04-08] MEDS ORDERED: ENOXAPARIN 40 MG/0.4 ML SYRINGE. SQ SCH (09:00)
[2019-04-08] MEDS: amLODIPine BESYLATE 5 MG TABLET PO SCH (09:48)
[2019-04-08] MEDS: LOSARTAN POTASSIUM 50 MG TABLET. PO SCH (09:49)
[2019-04-08] MEDS: hydroCHLOROthiazide 25 MG TABLET PO SCH (09:49)
[2019-04-08] MEDS: ASPIRIN ENTERIC COATED 81 MG TABLET.DR. PO SCH (09:49)
[2019-04-08] MEDS: METOPROLOL SUCC 24HR ER 25 MG TAB.ER.24H. PO SCH (09:49)
--- NOTE | 2019-04-08 10:29 | NUR ---
SW following. Discussed with RN, pt from home. RN advised no SW needs, pt does not have a fever - just sore throat, could possibly be ready for discharge home with self care today.
[2019-04-08 11:00] VITALS: BP 134/64
[2019-04-08] MEDS ORDERED: CEPH-264 PO (14:30)
[2019-04-08] MEDS ORDERED: guaiFENesin/CODEINE 100mg/10mg PO (14:30)
--- NOTE | 2019-04-08 14:33 | PDOC3 ---
Discharge Summary Visit Information Date of Admission: Apr 05, 2019 Date of Discharge: Apr 08, 2019 Final Diagnosis sepsis, acute viral illness clinical Influenza on admit, swab neg, - Shortness of breath - looks like pulmonary edema 2/2 viral pneumonia, given her symptoms this is classic for influenza. Previously treated for chest pain back in 2017, had negative lexiscan 03/2017 and echo at that time. This sounds less like diastolic CHF. Supportive care, tamiflu HTN; well controlled Hx of PSVT: unknown type on toprol XL 50 mg Dysmetabolic X syndrome obese, bmi 41 Medical Problems: (1) Acute exacerbation of CHF (congestive heart failure) Status: Acute (2) Pneumonia Status: Acute Brief Hospital Course Allergies Allergies Coded Allergies Type Severity Reaction Last Updated Verified No Known Drug Allergies 03/26/13 No Vital Signs Vital Signs Date Time Temp Pulse Resp B/P (MAP) Pulse Ox O2 Delivery O2 Flow Rate FiO2 04/08/19 12:39 96 Room Air 04/08/19 11:00 98.5 50 16 134/64 (87) 98.5 Lab Results Laboratory Tests Test 04/06/19 16:35 04/06/19 20:48 04/07/19 07:12 04/07/19 11:33 Glucose (Fingerstick) 147 mg/dL (70-99) 194 mg/dL (70-99) 126 mg/dL (70-99) 125 mg/dL (70-99) Test 04/07/19 16:19 04/07/19 21:01 04/08/19 07:26 04/08/19 12:06 Glucose (Fingerstick) 140 mg/dL (70-99) 173 mg/dL (70-99) 123 mg/dL (70-99) 124 mg/dL (70-99) Laboratory Tests Test 04/07/19 16:19 04/07/19 21:01 04/08/19 07:26 04/08/19 12:06 Glucose (Fingerstick) 140 mg/dL (70-99) 173 mg/dL (70-99) 123 mg/dL (70-99) 124 mg/dL (70-99) Brief Hospital Course Ms. Dugan is a 54 old female, admit with sepsis, better with rocephin, will finish abx course cough meds better symptoms so similar to flu that swab was run twice and neg twice, Discharge Information Condition at Discharge: Improved Follow Up: Weeks Disposition/Orders: D/C to Home Scheduled Amlodipine Besylate (Amlodipine Besylate) 5 Mg Tablet, 5 MG PO DAILY, (Reported) Entered as Reported by: RADHA VASQUEZ RN on 04/07/171638 Last Action: Reviewed on 04/05/191601 by RADHA GARCIA Cephalexin (Keflex) 500 Mg Capsule, 1 CAP PO TID for antibiotic for 7 Days, #21 Ref 0 Prescribed by: HARLEY MENON on 04/08/19 1430 Dulaglutide (Trulicity) 0.75 Mg/0.5 Ml Pen.injctr, 0.75 MG SQ QWE for diabetes, (Reported) Entered as Reported by: RADHA GARCIA on 04/05/191602 Last Action: New Order on 04/05/191602 by RADHA GARCIA Metoprolol Succinate (Metoprolol Succinate ( Xl )) 25 Mg Tab.er.24h, 1 TAB PO DAILY, #30 Ref 5 (Reported) Entered as Reported by: RADHA VASQUEZ RN on 04/07/171638 Last Action: Reviewed on 04/05/191601 by RADHA GARCIA Naproxen (Naproxen) 375 Mg Tablet, 375 MG PO BID, #20 Prescribed by: PORTIA DAMON MD on 05/07/162239 Last Action: Reviewed on 04/05/191601 by RADHA GARCIA Valsartan (Diovan) 320 Mg Tablet, 320 MG PO DAILY, (Reported) Entered as Reported by: RADHA VASQUEZ RN on 04/07/171638 Last Action: Reviewed on 04/05/191601 by RADHA GARCIA Scheduled PRN Cyclobenzaprine Hcl (Cyclobenzaprine Hcl) 10 Mg Tablet, 10 MG PO TID PRN for MUSCLE SPASMS, #15 Prescribed by: PORTIA DAMON MD on 05/07/162239 Last Action: Reviewed on 04/05/191601 by RADHA GARCIA Omeprazole (Omeprazole) 20 Mg Tablet.dr, 20 MG PO PRN DAILY PRN for GI SYMPTOMS, (Reported) Entered as Reported by: RADHA GARCIA on 04/05/191601 Last Action: New Order on 04/05/191601 by RADHA GARCIA [guaiFENesin/CODEINE 100mg/10mg] 5 ML LIQUID, 10 ML PO PRN Q6HRS PRN for COUGH, #150 Prescribed by: HARLEY MENON on 04/08/19 1430 Patient Instructions Patient Instructions > 30 min face to face, discussed plan HARLEY MENON MD Apr 08, 2019 14:33
[2019-04-08 15:00] VITALS: BP 159/70
--- NOTE | 2019-04-08 16:53 | NUR ---
pt discharged home with family. meds and follow up reviewed. pt stable upon dc. iv removed cath intact.
[2019-04-08] MEDS ORDERED: LACTOBACILLUS RHAMNOSUS GG 1 CAPSULE. PO SCH (21:00)
== END 2019-04-08 17:00 | disposition home or self-care (01) | DRG 871 ==
LOC: ER 10:19 → 5 SOUTH 13:29
PROVIDERS: ADMIT Internal Medicine; ATTEND Internal Medicine
DX: A41.9 Sepsis, unspecified organism (principal); J12.9 Viral pneumonia, unspecified; Z68.41 Body mass index [BMI] 40.0-44.9, adult; I50.30 Unspecified diastolic (congestive) heart failure; E11.9 Type 2 diabetes mellitus without complications; I49.3 Ventricular premature depolarization; E66.01 Morbid (severe) obesity due to excess calories; I11.0 Hypertensive heart disease with heart failure; Z98.891 History of uterine scar from previous surgery; Z87.891 Personal history of nicotine dependence
CPT/HCPCS: 36415; 71046; 80053; 80307; 81001; 82962; 83036; 83605; 83735; 83880; 84145; 84484; 85025; 85610; 85730; 87040; 87804; 93005; 94640; 94760; 99285; J0696; J1650; J1815; J1885; J1956; J2543; J3010; J7030; J7620; G0378